=== PATIENT | female | born 1945 | race Caucasian/White ===

== ENCOUNTER 2022-02-21 19:18 | Inpatient (IN) ==
[2022-02-21] MEDS ORDERED: SODIUM CHLORIDE 0.9% 1000ML 1,000 ML IV STA (19:45)
[2022-02-21] MEDS ORDERED: ONDANSETRON INJ 2 MG/ML 2 ML VIAL IV STA (19:45)
--- NOTE | 2022-02-21 19:59 | Emergency Department Note ---
Impression & Plan Intractable low back pain, Pathologic compression fracture of lumbar vertebra, Constipation ED Provider Note NAME: MAURY DAVIS AGE: 77 SEX: F : 1945 ARRIVES VIA: Ambulance INFORMANT: Patient, ED PROVIDER(S): Madhu Patel DO CHIEF COMPLAINT: Back pain HPI: The patient is a 77-year-old female who presented to the emergency department for an evaluation of severe back pain. The patient was recently diagnosed with breast cancer. She has been managing back pain as well as chest pain over the course the last month. She was seen by her primary care physician and started on pain medication. The patient has been taking oxycodone. She is also been very constipated noticing abdominal distention abdominal pain. She states the back pain is moderate to severe. It worsens with any ambulation. The patient denies having any hematuria or fever. She did have a CT recently that shows widely metastatic disease to the axial skeleton but no definite primary although the patient does have known breast cancer now. She is pending multiple tests including PET scan as well as MRI. The pain became much more severe this evening so they called their primary care physician and they were referred to the emergency department for further evaluation. The patient denies having any numbness or saddle anesthesia. ROS: See above HPI for pertinent positives & negatives. A total of 10 systems reviewed and were otherwise negative. PAST MEDICAL HISTORY: See Below PAST SURGICAL HISTORY: See Below FAMILY HISTORY: See Below SOCIAL HISTORY: See Below HOME MEDICATIONS: See Below ALLERGIES: See Below VITALS: See Below PHYSICAL EXAMINATION: GENERAL: The patient is awake and alert. The patient is very anxious appearing and appears to be in severe pain. EYES: The conjunctivae are clear. The pupils are round and reactive. EARS, NOSE, MOUTH AND THROAT: The nose is without any evidence of any deformity. NECK: The neck is nontender and supple. RESPIRATORY: Normal respiratory effort is noted there is no evidence of wheezing rhonchi or rales CARDIOVASCULAR: Regular rate and rhythm noted there no murmurs rubs or gallops normal S1 normal S2. GASTROINTESTINAL: The abdomen is moderately distended. There is no tenderness guarding rigidity. BACK: Diffuse tenderness was noted over the entire spine. MUSCULOSKELETAL/EXTREMITIES: There is no evidence of gross deformity full range of motion is noted in the hips and shoulders. SKIN: There is no obvious evidence of any rash. There are no petechiae, pallor or cyanosis noted. NEUROLOGIC: Patient is awake alert and oriented x3 strength is symmetric patellar reflexes are 2+ bilaterally. Achilles tendon reflexes are 2+ bilaterally. Great toe raise was symmetric. MEDICAL DECISION MAKING: The patient is a 77-year-old female who presented to the emergency department for severe low back pain. The patient started having symptoms about a month ago. She was found to have widely metastatic disease to the axial skeleton. She also was recently diagnosed with breast cancer. It is unclear if the metast atic disease is related to the primary breast cancer although it is highly suspicious for metastatic disease from the breast cancer. The patient has follow-up scheduled with oncology. She has had an MRI and is scheduled further testing such as PET scanning. The patient was treated with IV pain medication in the emergency department. She is also been complaining of constipation. Her pain medicine regimen at home does not appear to be helping and she has new pathologic fractures noted on CT. For this reason I [facility] have agreed to evaluate the patient in the emergency department for further management and disposition. Triage Nursing notes reviewed. Prior medical records reviewed Vital Signs: reviewed and remarkable for elevated blood pressure. Differential diagnosis: Musculoskeletal, disc herniation, fracture, metastatic disease, cord compression, discitis, sciatica, cauda equina, infection, aortic disease, renal colic, gastrointestinal, as well as other pathologies. ER treatment provided: See below Diagnostics interpreted by me: ECG: none Cardiac Monitoring: An order was placed for continuous cardiac monitoring. The monitor shows a rate of 77 bpm with sinus rhythm. Laboratory studies: As stated above and show below. Imaging studies: See below Consultation(s): I discussed this case with Dr. Abdi who [facility]. Past Med/Surg History Medical History Nausea and vomiting after administration of anesthetic agent Osteoarthritis Surgical History History of arthroscopy of right knee mensicus repair History of colonoscopy History of fusion of cervical spine (~2002) C7--normal ROM History of left cataract surgery History of partial hysterectomy History of wisdom tooth extraction Family History Other No family history of adverse response to anesthesia Social History Smoking Status: Never smoker Second Hand Exposure: No; Hx Alcohol Use: Yes Hx Substance Use: No Preferred Language: Jamaican Communication Ability: Effective Material Control Supervisor Required: No Beliefs That Will Affect Care: None Current Living Situation: Spouse Feels Safe at Home: Yes Assistive Devices: Glasses Allergies Allergies Allergy/AdvReac Type Severity Reaction Status Date / Time bee venom protein (honey bee) Allergy Severe ANAPHYLAXIS Verified 12/24/21 06:29 Home Meds Home Medications Medication Instructions Recorded Confirmed Vitamin D3 Complete 50 mg PO DAILY 11/20/21 12/24/21 aspirin 81 mg chewable tablet 81 mg PO DAILY 11/20/21 12/24/21 atorvastatin 40 mg tablet 40 mg PO HS 11/20/21 12/24/21 calcium carbonate 333 mg-magnesium 1 tab PO DAILY 11/20/21 12/24/21 oxide 133 mg-zinc sulf 5 mg tablet coenzyme Q10 100 mg capsule 100 mg PO DAILY 11/20/21 12/24/21 (CoQ-10) cyanocobalamin (vitamin B-12) 1,000 mcg PO DAILY 11/20/21 12/24/21 1,000 mcg tablet (Vitamin B-12) multivitamin 1 tab PO DAILY 11/20/21 12/24/21 omega-3 fatty acids 2,000 mg PO DAILY 11/20/21 12/24/21 pyridoxine (vitamin B6) 100 mg 100 mg PO DAILY 11/20/21 12/24/21 tablet (Vitamin B-6) vitamin A 2,400 mcg capsule 2,400 mcg PO DAILY 11/20/21 12/24/21 vitamin A-vitamin C-vit E-min 1 tab PO DAILY 11/20/21 12/24/21 tablet vitamin B complex 1 cap PO DAILY 11/20/21 12/24/21 vitamin E (dl, acetate) 180 mg 180 mg PO DAILY 11/20/21 12/24/21 (400 unit) capsule Results & Data (ED) Vital Signs Vital Signs - 24 hr 02/21/22 19:22 Temperature 37.4 C Temperature Source Oral Pulse Rate 77 Respiratory Rate 20 Respiratory Effort / Characteristics Non-Labored Respiratory Depth Normal Blood Pressure 158/73 H Blood Pressure Mean 101 Blood Pressure Position Lying Pulse Oximetry 97 Oxygen Delivery Method Room Air Sepsis Recent Fever Within 48 Hours No Sepsis New/Unexplained Change in Mental Status No Sepsis Action Taken by Nursing No Action Required Home Medications Current Medication List: was personally reviewed by me Laboratory Data Attestation: I reviewed the patient's lab results. Result diagrams: 02/21/22 16:53 02/21/22 16:53 Lab Results 02/21/22 02/21/22 02/21/22 Range/Units 16:53 16:53 21:05 WBC 11.26 H (4.8-10.8) K/uL RBC 4.42 (4.2-5.4) M/uL Hgb 13.1 (12.0-16.0) g/dL Hct 39.4 (37-47) % MCV 89.1 (80-100) fL MCH 29.6 (25-34) pg MCHC 33.2 (32-36) g/dL RDW Std Deviation 47.5 H (36.4-46.3) fL RDW Coeff of Adeel 14.5 (11.5-14.5) % Plt Count 265 (130-400) K/uL MPV 8.7 (7.4-10.4) fL Immature Gran % (Auto) 0.3 % Neut % (Auto) 72.2 % Lymph % (Auto) 17.1 % [place] % (Auto) 9.0 % Eos % (Auto) 1.2 % Baso % (Auto) 0.2 % Neut # (Auto) 8.14 H (1.4-6.5) K/uL Lymph # (Auto) 1.92 (1.2-3.4) K/uL [place] # (Auto) 1.01 H (0.11-0.59) K/uL Eos # (Auto) 0.14 (0-0.5) K/uL Baso # (Auto) 0.02 (0-0.2) K/uL Immature Gran # (Auto) 0.03 H (0.00-0.02) K/uL Sodium 136 (136-145) mmol/L Potassium 4.3 (3.5-5.1) mmol/L Chloride 103 (98-107) mmol/L Carbon Dioxide 22 (21-32) mmol/L Anion Gap 11 (3-11) BUN 17 (6-23) mg/dl Creatinine 0.80 (0.6-1.2) mg/dl Est Cr Clr Drug Dosing 54.7 ml/min Est GFR ( Amer) 82.4 ml/min Est GFR (Non-Af Amer) 71.1 ml/min BUN/Creatinine Ratio 21.3 H (10-20) Glucose 126 H (70-99(Fasting)) mg/dl Calcium 9.6 (8.5-10.1) mg/dl Total Bilirubin 0.8 (0.2-1.0) mg/dl AST 18 (13-39) U/L ALT 11 (7-52) U/L Alkaline Phosphatase 76 (34-104) U/L Total Protein 7.4 (6.0-8.3) gm/dl Albumin 4.2 (3.4-5.0) gm/dl Globulin 3.2 (2.5-4.0) gm/dl Albumin/Globulin Ratio 1.3 (0.9-2) Lipase 15 (11-82) U/L SARS-CoV-2, RNA, NAAT NEGATIVE (NEGATIVE) Administered Medications Morphine Sulfate (Morphine Sulfate 4 Mg/Ml 1 Ml Carp\Vial) 4 mg IV Q15M PRN PRN Reason: Pain Stop: 03/07/22 19:44 Last Admin: 02/21/22 20:58 Dose: 4 mg Documented by: [id number] Discontinued Medications Sodium Chloride (Nss 1000ml) 1,000 mls @ 999 mls/hr IV .Q1H1M STA Stop: 02/21/22 20:45 Last Admin: 02/21/22 21:03 Dose: 999 mls/hr Documented by: [id number] Ondansetron HCl (Ondansetron Inj 2 Mg/Ml 2 Ml Vial) 4 mg IV NOW STA Stop: 02/21/22 19:46 Last Admin: 02/21/22 20:58 Dose: 4 mg Documented by: [id number] Imaging Data Radiologist's Impression: Abdomen/Pelvis CT 02/21/22 19:45 CT abd pelvis wo con CLINICAL HISTORY: lower pain TECHNIQUE: Helical axial images of the abdomen and pelvis were obtained. Automated dose lowering techniques and/or adjustment according to patient size were utilized for this exam. This exam was performed without intravenous contrast. CT DOSE: 410.74 mGy.cm COMPARISON: Comparison is made to CT abdomen pelvis 01/11/2022 FINDINGS: Lower chest: Atelectasis is seen in the lower lungs. Liver: Hepatic cyst is seen. Gallbladder and biliary tree: No calcified gallstones. Normal caliber wall. No intra- or extrahepatic biliary ductal dilation. Pancreas: Unremarkable, no focal lesions. Spleen: Unremarkable. Adrenals: Unremarkable. Kidneys and ureters: Unremarkable. Bladder: Unremarkable. Reproductive organs: Unremarkable. Bowel: Unremarkable appearance of the bowel. The appendix is normal. A hiatal hernia is seen. Lymph nodes Retroperitoneal: Unremarkable. Mesenteric: Unremarkable. Pelvic: Unremarkable. Peritoneum: Normal. Vessels: Unremarkable. Abdominal wall: Incidentally noted is an intramuscular lipoma in the right lateral oblique muscles. Bones: Extensive lytic and blastic metastases are seen. Previously noted loss of height deformities are seen. IMPRESSION: 1. No acute abnormality is seen, in particular no evidence of diverticulitis or appendicitis. 2. Redemonstration of extensive mixed lytic and sclerotic lesions and pathologic fractures. ACT 112: Negative or not required by law. Electronically signed by: Gonsalo Muir M.D. 02/21/2022 8:47 PM Chest X-Ray 02/21/22 19:46 XR chest 1V portable CLINICAL HISTORY: abd pain TECHNIQUE: Single frontal radiograph of the chest was obtained. Comparison: None available at the time of this dictation. FINDINGS: No lines and tubes are seen. The aorta is tortuous. The remainder of the cardiomediastinal silhouette is unremarkable. Prominence and cephalization of the vasculature is seen. A focus of atelectasis is seen at the left lung base. No evidence of pleural effusion or pneumothorax. IMPRESSION: Mild pulmonary edema. ACT 112: Negative or not required by law. Electronically signed by: Gonsalo Muir M.D. 02/21/2022 8:35 PM Discharge Plan Visit Data Chief Complaint: Back Injury/Pain ED Provider: Madhu Patel Discharge Problem: Intractable low back pain, Pathologic compression fracture of lumbar vertebra, Constipation Patient Disposition: Being Evaluated by Hospitalist Forms Stand Alone Forms: My [facility] Prescriptions Prescriptions: No Action multivitamin Tablet 1 tab PO DAILY RF: 0 atorvastatin 40 mg Tablet 40 mg PO HS RF: 0 vitamin A 2,400 mcg Capsule 2,400 mcg PO DAILY RF: 0 cyanocobalamin (vitamin B-12) [Vitamin B-12] 1,000 mcg Tablet 1,000 mcg PO DAILY RF: 0 aspirin 81 mg Tablet,Chewable 81 mg PO DAILY RF: 0 pyridoxine (vitamin B6) [Vitamin B-6] 100 mg Tablet 100 mg PO DAILY RF: 0 vitamin B complex Capsule 1 cap PO DAILY RF: 0 vitamin A-vitamin C-vit E-min Tablet 1 tab PO DAILY RF: 0 coenzyme Q10 [CoQ-10] 100 mg Capsule 100 mg PO DAILY RF: 0 omega-3 fatty acids Capsule 2,000 mg PO DAILY RF: 0 vitamin E (dl, acetate) 180 mg (400 unit) Capsule 180 mg PO DAILY RF: 0 calcium carb-mag ox-zinc sulf 333-133-5 mg Tablet 1 tab PO DAILY RF: 0 Vitamin D3 Complete 50 mg PO DAILY RF: 0 Referrals Referrals: Chu Phillips DO [Primary Care Provider] -
[2022-02-21 20:04] LABS: Basophils # (auto) 0.02 K/uL (0-0.2); Basophils % (auto) 0.2 %; Eosinophils # (auto) 0.14 K/uL (0-0.5); Eosinophils % (auto) 1.2 %; Hematocrit (blood only) 39.4 % (37-47); Hemoglobin 13.1 g/dL (12.0-16.0); Immature Granulocytes # (auto) 0.03 K/uL (0.00-0.02); Immature Granulocytes % (auto) 0.3 %; Lymphocytes # (auto) 1.92 K/uL (1.2-3.4); Lymphocytes % (auto) 17.1 %; Mean Corpuscular Hemoglobin 29.6 pg (25-34); Mean Corpuscular Hgb Conc 33.2 g/dL (32-36); Mean Corpuscular Volume 89.1 fL (80-100); Mean Platelet Volume 8.7 fL (7.4-10.4); Monocytes # (auto) 1.01 K/uL (0.11-0.59); Neutrophils # (auto) 8.14 K/uL (1.4-6.5); Neutrophils % (auto) 72.2 %; Platelet Count 265 K/uL (130-400); RDW Coefficient of Variation 14.5 % (11.5-14.5); RDW Standard Deviation 47.5 fL (36.4-46.3); Red Blood Count 4.42 M/uL (4.2-5.4); White Blood Count 11.26 K/uL (4.8-10.8)
[2022-02-21 20:27] LABS: Albumin Globulin Ratio 1.3 (0.9-2); Albumin Level 4.2 gm/dl (3.4-5.0); BUN Creatinine Ratio 21.3 (10-20); Bilirubin,Total 0.8 mg/dl (0.2-1.0); Calcium 9.6 mg/dl (8.5-10.1); Creatinine Clr Calc Pharmacy 54.7 ml/min; Est GFR (African American) 82.4 ml/min; Est GFR (Non-African American) 71.1 ml/min; Globulin 3.2 gm/dl (2.5-4.0); Potassium 4.3 mmol/L (3.5-5.1); Total Protein 7.4 gm/dl (6.0-8.3)
--- NOTE | 2022-02-21 20:37 | XRay Report ---
XR chest 1V portable CLINICAL HISTORY: abd pain TECHNIQUE: Single frontal radiograph of the chest was obtained. Comparison: None available at the time of this dictation. FINDINGS: No lines and tubes are seen. The aorta is tortuous. The remainder of the cardiomediastinal silhouette is unremarkable. Prominence and cephalization of the vasculature is seen. A focus of atelectasis is seen at the left lung base. No evidence of pleural effusion or pneumothorax. IMPRESSION: Mild pulmonary edema. ACT 112: Negative or not required by law. Electronically signed by: Gonsalo Muir M.D. 02/21/2022 8:35 PM
--- NOTE | 2022-02-21 20:49 | CT Scan Report ---
CT abd pelvis wo con CLINICAL HISTORY: lower pain TECHNIQUE: Helical axial images of the abdomen and pelvis were obtained. Automated dose lowering tech niques and/or adjustment according to patient size were utilized for this exam. This exam was perfor med without intravenous contrast. CT DOSE: 410.74 mGy.cm COMPARISON: Comparison is made to CT abdomen pelvis 01/11/2022 FINDINGS: Lower chest: Atelectasis is seen in the lower lungs. Liver: Hepatic cyst is seen. Gallbladder and biliary tree: No calcified gallstones. Normal caliber wall. No intra- or extrahepatic biliary ductal dilation. Pancreas: Unremarkable, no focal lesions. Spleen: Unremarkable. Adrenals: Unremarkable. Kidneys and ureters: Unremarkable. Bladder: Unremarkable. Reproductive organs: Unremarkable. Bowel: Unremarkable appearance of the bowel. The appendix is normal. A hiatal hernia is seen. Lymph nodes Retroperitoneal: Unremarkable. Mesenteric: Unremarkable. Pelvic: Unremarkable. Peritoneum: Normal. Vessels: Unremarkable. Abdominal wall: Incidentally noted is an intramuscular lipoma in the right lateral oblique muscles. Bones: Extensive lytic and blastic metastases are seen. Previously noted loss of height deformities a re seen. IMPRESSION: 1. No acute abnormality is seen, in particular no evidence of diverticulitis or appendicitis. 2. Redemonstration of extensive mixed lytic and sclerotic lesions and pathologic fractures. ACT 112: Negative or not required by law. Electronically signed by: Gonsalo Muir M.D. 02/21/2022 8:47 PM
[2022-02-21] MEDS: MoRPHine SULFATE 4 MG/ML 1 ML CARP\\VIAL IV PRN ×2 (20:58→23:47)
[2022-02-21] MEDS ORDERED: MAGNESIUM CITRATE 296 ML/BTL PO STA (23:12)
[2022-02-22 00:37] LABS: Appearance Urine Clear (Clear); Bilirubin Urine Negative (Negative); Blood Urine Negative (Negative); Color Urine Yellow; Epithelial Cell Urine Auto >30 /lpf (0-5); Glucose Urine UA Negative (Negative); Ketones Urine 1+ (Negative); Leukocyte Esterase Urine 2+ (Negative); Nitrite Urine Negative (Negative); Protein Urine Negative (Negative); Specific Gravity Urine 1.021 (1.000-1.030); Urobilinogen Urine Negative (Negative); WBC Urine Automated >30 /hpf (0-5); pH Urine 6.5 (4.5-7.5)
[2022-02-22] MEDS ORDERED: ONDANSETRON INJ 2 MG/ML 2 ML VIAL IV PRN (00:44)
[2022-02-22] MEDS ORDERED: POLYETHYLENE (MIRALAX) 17 GM PACK PO PRN (00:44)
[2022-02-22] MEDS: HYDROmorphone INJ 0.5 MG/0.5 ML SYR IV PRN ×4 (01:08→18:14)
[2022-02-22 01:47] LABS: Mucus Urine Present (None Prsent); RBC Urine Automated 0-4 /hpf (0-4)
[2022-02-22 01:53] LABS: Bacteria Urine Automated 1+ (Negative)
[2022-02-22 01:54] LABS: Cast Urine Automated 0 /lpf (0-5)
[2022-02-22 05:38] LABS: Basophils # (auto) 0.03 K/uL (0-0.2); Basophils % (auto) 0.3 %; Eosinophils # (auto) 0.15 K/uL (0-0.5); Eosinophils % (auto) 1.7 %; Hematocrit (blood only) 35.9 % (37-47); Hemoglobin 11.8 g/dL (12.0-16.0); Immature Granulocytes # (auto) 0.03 K/uL (0.00-0.02); Immature Granulocytes % (auto) 0.3 %; Lymphocytes # (auto) 1.89 K/uL (1.2-3.4); Lymphocytes % (auto) 21.6 %; Mean Corpuscular Hemoglobin 29.6 pg (25-34); Mean Corpuscular Hgb Conc 32.9 g/dL (32-36); Mean Platelet Volume 8.7 fL (7.4-10.4); Monocytes # (auto) 0.86 K/uL (0.11-0.59); Monocytes % (auto) 9.8 %; Neutrophils % (auto) 66.3 %; Platelet Count 255 K/uL (130-400); RDW Coefficient of Variation 14.4 % (11.5-14.5); RDW Standard Deviation 48.1 fL (36.4-46.3); Red Blood Count 3.99 M/uL (4.2-5.4); White Blood Count 8.76 K/uL (4.8-10.8)
[2022-02-22 05:58] LABS: Calcium 9.1 mg/dl (8.5-10.1); Creatinine Clr Calc Pharmacy 58.8 ml/min; Est GFR (African American) 90.6 ml/min; Est GFR (Non-African American) 78.1 ml/min; Magnesium 2.2 mg/dl (1.7-2.4); Potassium 4.9 mmol/L (3.5-5.1)
--- NOTE | 2022-02-22 06:41 | History and Physical Report ---
DATE OF ADMISSION: 02/21/2022. CHIEF COMPLAINT: Severe back pain. HISTORY OF PRESENT ILLNESS: This is a 77-year-old female with past medical history significant for recent diagnosis of metastatic breast cancer, bone metastasis, prediabetes, hypercholesterolemia, non-allergic rhinitis, who presents with severe back pain. The patient seemed to have a small left breast lesion, which was benign, but then she had axillary lymphadenopathy, biopsy showed metastatic breast cancer, hormonal negative, HER-2 equivocal, significant bone metastatic disease, following with Hem/Onc. As per the patient, she is supposed to get monthly shots starting next Friday. She also had MRI scan done on 02/16/2022 of the thoracic spine, which showed extensive osseous metastatic disease throughout the thoracic spine, multilevel chronic-appearing pathologic compression fractures including a moderate to severe compression fracture of T10, associated with mild retropulsion of bone, also lytic lesion within the T9 vertebral body with suspected internal hemorrhage, no associated vertebral body height loss. There was also block like enhancement extending along the ventral epidural space from T9-T11, suspicious for epidural extension of disease. No significant mass effect on the spinal cord. Thoracic spine spondylosis with superimposed metastases changes, associated with mild spinal canal narrowing at T10-T11 level and foraminal narrowing. As the pain is not getting better, she came to the hospital today. She states she is able to ambulate and she is able to climb stairs, but when trying to get up, she has severe pain in the lower back and she is also constipated for the last 2 weeks. She did not move her bowels for 2 weeks. Normal bladder movements. Appetite is down. No difficulty swallowing. No chest pain, no shortness of breath, no cough, no fevers, some headache, no blurred visions, no earache, no runny nose, no sore throat. Currently, resting comfortably and hemodynamically stable. With ongoing severe back pain, we are called for admission. ALLERGIES: BEE VENOM. PAST MEDICAL HISTORY: As mentioned above. PAST SURGICAL HISTORY: Breast biopsy, colonoscopies, neck spine fusion, partial hysterectomy, bilateral cataract surgery. MEDICATIONS: As per [facility], the patient is on letrozole 2.5 mg p.o. daily, oxycodone 7.5 mg p.o. q. 6 hours p.r.n. for severe pain, Colace 100 mg p.o. b.i.d., MiraLax 17 g p.o. daily p.r.n., aspirin 81 mg p.o. daily, vitamin B12 1000 mcg p.o. daily, B complex daily, atorvastatin 40 mg p.o. daily. FAMILY HISTORY: Significant for father has allergies, lung cancer; mother has Alzheimer's, breast cancer; maternal grandmother had breast cancer; brother has lymphoma. SOCIAL HISTORY: , no smoking. Alcohol, rarely. No drug use. REVIEW OF SYSTEMS: As per HPI. Rest of the review is negative. PHYSICAL EXAMINATION: GENERAL: The patient is of moderate build, not in acute distress. VITAL SIGNS: Temperature 37.4, pulse 77, respiratory rate 20, blood pressure 158/73, oxygen 97% on room air. HEENT: Pupils equal, round and reactive to light. Oral mucosa moist. NECK: No JVD, no neck masses. CARDIOVASCULAR: S1 and S2 heard. Regular rate and rhythm. No murmur, no gallop. RESPIRATORY SYSTEM: Normal AP diameter. No accessory muscle use. No wheezing, no crackles. ABDOMEN: Soft, bowel sounds present, nontender, no distention. CENTRAL NERVOUS SYSTEM: Cranial nerves II through XII grossly intact, nonfocal. EXTREMITIES: No edema, no erythema.Able to raise lower extremities LABORATORY DATA: WBC 11.2, hemoglobin 13.1, hematocrit 39.4, platelets 265. Sodium 136, potassium 4.3, chloride 103, bicarbonate 22, BUN 17, creatinine 0.8, serum glucose 126, calcium 9.6, total bilirubin 0.8, AST 18, ALT 11, alkaline phosphatase 76, lipase 15. SARS-CoV-2 rapid test negative. IMAGING DATA: Chest x-ray: Mild pulmonary edema. CT abdomen and pelvis, extensive mixed lytic and sclerotic lesions and pathological fractures. ASSESSMENT AND PLAN: This is a 77-year-old female who was recently diagnosed with metastatic breast cancer with bony metastasis, comes with severe back pain. 1. Severe back pain: Metastatic breast cancer. She has multiple compression fractures of thoracic spine as mentioned in H and P, on the recent MRI scan. Pain control with Dilaudid p.r.n. Will consult orthopedics and also pain management. Monitor in the medical floor. 2. Metastatic breast cancer: Follow up with hem/onc.Currently on Femara. 3. Hyperlipidemia: On statin. 4. Constipation. Stool softner and enema. May try Relistor. 5. Prediabetes. ADA diet.Follow Hba1c levels. 6. Deep venous thrombosis prophylaxis: Lovenox. DISPOSITION: Closely monitor in the medical floor. PT/OT. Social service to help with discharge planning. Job ID: [id number]
--- NOTE | 2022-02-22 08:54 | Pain Management Consultation ---
Date of Consultation February 22, 2022 Assessment & Plan (1) Intractable low back pain: (2) Pathologic compression fracture of lumbar vertebra: Encounter type: initial encounter Qualified Code(s): M48.56XA - Collapsed vertebra, not elsewhere classified, lumbar region, initial encounter for fracture (3) Breast cancer: * I have initiated the patient on Fentanyl patch 12 mcg/hr. Side effect profile has been reviewed with the patient. * Ordered Oxycodone 10mg x 4 hours PRN pain * IV Dilaudid 0.5 mg x 3 hours PRN breakthrough pain. * Colace and Senokot ordered for constipation. * Consider adding Cymbalta to diminish pain burden but will not add today given that Fentanyl patch is new. History of Present Illness Reason for Consultation: Back pain Attending Physician: Rosalie Barriga MD History of Present Illness Mrs. Vaca that is a 77 year old female that has been admitted to the [facility] for intractable back pain. Back pain has been ongoing for 3 weeks. She does have a recent diagnosis of breast cancer and the back pain was found to be attributed to bone metastasis. PCP prescribed her Oxycodone 15mg x 6 hours PRN pain. Yesterday the pain was not managed with the medication so she can into the Emergency Department for further treatment. Patient reports pain in the mid to low back. No radiation of pain. The pain is worse when going from supine to sitting or sitting to standing. Since starting the Oxycodone she has had constipation. Has not had a full BM in 2 weeks. No abdominal bloating, nausea, vomiting, drowsiness. Case discussed with Dr. Deb Roach Allergies Allergy/AdvReac Type Severity Reaction Status Date / Time bee venom protein (honey bee) Allergy Severe ANAPHYLAXIS Verified 12/24/21 06:29 Home Medications Medication Instructions Recorded Confirmed Type Vitamin D3 Complete 50 mg PO DAILY 11/20/21 12/24/21 History aspirin 81 mg chewable tablet 81 mg PO DAILY 11/20/21 12/24/21 History atorvastatin 40 mg tablet 40 mg PO HS 11/20/21 12/24/21 History calcium carbonate 333 mg-magnesium 1 tab PO DAILY 11/20/21 12/24/21 History oxide 133 mg-zinc sulf 5 mg tablet coenzyme Q10 100 mg capsule 100 mg PO DAILY 11/20/21 12/24/21 History (CoQ-10) cyanocobalamin (vitamin B-12) 1,000 mcg PO DAILY 11/20/21 12/24/21 History 1,000 mcg tablet (Vitamin B-12) multivitamin 1 tab PO DAILY 11/20/21 12/24/21 History omega-3 fatty acids 2,000 mg PO DAILY 11/20/21 12/24/21 History pyridoxine (vitamin B6) 100 mg 100 mg PO DAILY 11/20/21 12/24/21 History tablet (Vitamin B-6) vitamin A 2,400 mcg capsule 2,400 mcg PO DAILY 11/20/21 12/24/21 History vitamin A-vitamin C-vit E-min 1 tab PO DAILY 11/20/21 12/24/21 History tablet vitamin B complex 1 cap PO DAILY 11/20/21 12/24/21 History vitamin E (dl, acetate) 180 mg 180 mg PO DAILY 11/20/21 12/24/21 History (400 unit) capsule letrozole 2.5 mg tablet 2.5 mg PO DAILY 02/22/22 02/22/22 History Patient History Medical History Nausea and vomiting after administration of anesthetic agent Osteoarthritis Surgical History History of arthroscopy of right knee mensicus repair History of colonoscopy History of fusion of cervical spine (~2002) C7--normal ROM History of left cataract surgery History of partial hysterectomy History of wisdom tooth extraction Family History Other No family history of adverse response to anesthesia Social History Smoking Status: Never smoker Second Hand Exposure: No; Hx Alcohol Use: No Hx Substance Use: No Preferred Language: Bulgarian Communication Ability: Effective Agronomy Specialist Required: No Beliefs That Will Affect Care: None Current Living Situation: Spouse Other Information That Helps Us Care for You: No Feels Safe at Home: Yes Safety Concerns: Feels Safe At This Time Assistive Devices: Cane Physical Exam Physical Exam: GENERAL: This is a 77 year old female that is laying supine in the hospital bed, in no acute distress. HEAD/FACE: Normocephalic and atraumatic. EYES: No drainage or conjunctival injection. ENT: Nose without bleeding or discharge. Oral mucosa moist. NECK: Full ROM without apparent pain. No swelling or masses noted. RESPIRATORY: Patient with unlabored breathing. No signs of respiratory distress. CHEST/AXILLA: Chest movement symmetrical. No deformities noted. ABDOMEN/GI: No distension BACK: No focal area of tenderness. No myofascial spasm. SKIN: [place], warm and dry. No rash noted. MS/EXTREMITY: No swelling, no deformities. Moving extremities appropriately. NEURO: Alert and appears oriented. Speech is fluent. Cranial Nerves are grossly intact. PSYCH: Alert, pleasant, affect is calm Results (Pain Clinic) Diagnostic Review CT Findings: CT abd pelvis wo con CLINICAL HISTORY: lower pain TECHNIQUE: Helical axial images of the abdomen and pelvis were obtained. Automated dose lowering techniques and/or adjustment according to patient size were utilized for this exam. This exam was performed without intravenous contrast. CT DOSE: 410.74 mGy.cm COMPARISON: Comparison is made to CT abdomen pelvis 01/11/2022 FINDINGS: Lower chest: Atelectasis is seen in the lower lungs. Liver: Hepatic cyst is seen. Gallbladder and biliary tree: No calcified gallstones. Normal caliber wall. No intra- or extrahepatic biliary ductal dilation. Pancreas: Unremarkable, no focal lesions. Spleen: Unremarkable. Adrenals: Unremarkable. Kidneys and ureters: Unremarkable. Bladder: Unremarkable. Reproductive organs: Unremarkable. Bowel: Unremarkable appearance of the bowel. The appendix is normal. A hiatal hernia is seen. Lymph nodes Retroperitoneal: Unremarkable. Mesenteric: Unremarkable. Pelvic: Unremarkable. Peritoneum: Normal. Vessels: Unremarkable. Abdominal wall: Incidentally noted is an intramuscular lipoma in the right lateral oblique muscles. Bones: Extensive lytic and blastic metastases are seen. Previously noted loss of height deformities are seen. IMPRESSION: 1. No acute abnormality is seen, in particular no evidence of diverticulitis or appendicitis. 2. Redemonstration of extensive mixed lytic and sclerotic lesions and pathologic fractures. ACT 112: Negative or not required by law. Electronically signed by: Gonsalo Muir M.D. 02/21/2022 8:47 PM
[2022-02-22] MEDS: fentaNYL 12 MCG/HR TDSY TD SCH (09:20)
[2022-02-22] MEDS: oxyCODONE HCL IR 5 MG TAB (IMMEDIATE RELEASE) PO PRN ×3 (09:21→23:55)
[2022-02-22] MEDS: ENOXAPARIN INJ 40 MG/0.4 ML SYR SQ SCH (09:21)
[2022-02-22] MEDS: DOCUSATE SODIUM 100 MG CAP PO SCH ×2 (09:21→20:33)
[2022-02-22] MEDS: ASPIRIN 81 MG CHEW PO SCH (09:22)
[2022-02-22] MEDS: LETROZOLE 2.5 MG TAB PO SCH (09:24)
[2022-02-22] MEDS: SENNA 8.6 MG TAB PO SCH (09:24)
--- NOTE | 2022-02-22 14:03 | Hospitalist Progress Note ---
Date of Service February 22, 2022 Assessment & Plan (1) Breast cancer: (2) Intractable low back pain: (3) Pathologic compression fracture of lumbar vertebra: Plan: Patient has intractable low back pain I reviewed patient's outpatient PET scan, MRI T-spine that were done outpatient on 02/06/2022 02/16/2022 respectively. These show widespread metabolically active osteolytic metastasis and extensive osseous metastatic throughout thoracic spine respectively. Abdominal pelvic CT on presentation redemonstrated extensive mixed lytic and sclerotic lesions and pathological fractures. Pain management recommendations noted. Continue Dilaudid, oxycodone and fentanyl patch. I believe patient may benefit from radiation treatment. I called patient's oncologist Dr. Feliciano Ceballos and discussed patient with him. He agreed with radiation oncology consult and evaluation for possible radiation treatment Radiation oncology consult Continue letrozole. Bowel regimen. Lovenox subcu for DVT prophylaxis Admission and Anticipated Discharge Date Admission Date: February 21, 2022 Subjective Patient seen and examined. Reports severe low back pain especially with any kind of movement. Denies any headache, dizziness Denies any chest pain, cough, shortness of breath, palpitations Denies any nausea, vomiting, abdominal pain, diarrhea. Yet to move bowels. Passing flatus Denies fevers, chills Denies dysuria, frequency or urgency Physical Exam Constitutional: + well hydrated Laying calm in bed Appears uncomfortable with slight movement Eyes: PERRL, conjunctivae normal, anicteric sclerae ENMT: external ear and nose normal, oropharynx normal Respiratory: normal respiratory effort, lungs clear to auscultation Cardiovascular: Rate/Rhythm: regular rate and regular rhythm S1 S2 Gastrointestinal (Abdomen): normal bowel sounds, soft, nontender, no hepatosp lenomegaly Musculoskeletal: No pedal edema Limited exam due to pain with slight movement Neurologic: PERRL, EOMI, accommodation nl, no face palsy, no dysarthria Psychiatric: A+Ox3, euthymic affect Results & Data Results & Data ([facility]) Vital Signs (Past 12 Hours) Vital Signs Temp Pulse Resp BP Pulse Ox 02/22/22 07:33 36.5 C 68 16 149/78 H 91 Laboratory Results Abnormal lab results 02/21/22 02/21/22 02/22/22 Range/Units 16:53 16:53 00:00 WBC 11.26 H (4.8-10.8) K/uL RBC (4.2-5.4) M/uL Hgb (12.0-16.0) g/dL Hct (37-47) % RDW Std Deviation 47.5 H (36.4-46.3) fL Neut # (Auto) 8.14 H (1.4-6.5) K/uL [place] # (Auto) 1.01 H (0.11-0.59) K/uL Immature Gran # (Auto) 0.03 H (0.00-0.02) K/uL BUN/Creatinine Ratio 21.3 H (10-20) Glucose 126 H (70-99(Fasting)) mg/dl Urine Ketones 1+ H (Negative) Ur Leukocyte Esterase 2+ H (Negative) Urine WBC (Auto) >30 H (0-5) /hpf U Epithel Cells (Auto) >30 H (0-5) /lpf Urine Bacteria (Auto) 1+ H (Negative) Urine Mucus Present A (None Prsent) 02/22/22 02/22/22 Range/Units 05:24 05:24 WBC (4.8-10.8) K/uL RBC 3.99 L (4.2-5.4) M/uL Hgb 11.8 L (12.0-16.0) g/dL Hct 35.9 L (37-47) % RDW Std Deviation 48.1 H (36.4-46.3) fL Neut # (Auto) (1.4-6.5) K/uL [place] # (Auto) 0.86 H (0.11-0.59) K/uL Immature Gran # (Auto) 0.03 H (0.00-0.02) K/uL BUN/Creatinine Ratio 23.0 H (10-20) Glucose 106 H (70-99(Fasting)) mg/dl Urine Ketones (Negative) Ur Leukocyte Esterase (Negative) Urine WBC (Auto) (0-5) /hpf U Epithel Cells (Auto) (0-5) /lpf Urine Bacteria (Auto) (Negative) Urine Mucus (None Prsent) (1) Pathologic compression fracture of lumbar vertebra Encounter type: initial encounter Qualified Code(s): M48.56XA - Collapsed vertebra, not elsewhere classified, lumbar region, initial encounter for fracture
--- NOTE | 2022-02-22 14:53 | Radiation OncologyConsultation ---
Date of Consultation February 22, 2022 Assessment & Plan (1) Malignant neoplasm of breast metastatic to bone: Assessment: 77-year-old female with family history of breast cancer recently presented with chest pain. CT scan showed a left breast mass and axillary nodes. Biopsy of the axillary nodes were positive consistent with metastatic breast cancer. Breast biopsy was nondiagnostic. Staging work-up shows evidence of extensive bony metastatic disease. Patient subsequently dev eloped acute right-sided low back pain consistent with areas of metastatic disease as noted on PET/CT scan and CT scan. MRI of the thoracic spine also showed extensive disease. No brain MRI has yet been performed or MRI of the lumbar spine. Treatment Options: 1. Initiation of hormonal therapy when estrogen and progesterone status per Dr. Mandie Ceballos. 2. Systemic therapy as recommended by Dr. Feliciano Ceballos. 3. Continued pain medication. 4. Palliative radiation to sites of pain. Recommendations: Systemic therapy will be determined by Dr. Ceballos. I am recommending a course of palliative radiation to the lower lumbar and SI joint region especially on the right with the patient's pain seems to be most severe. Plan: 1. We will proceed with a CT simulation on Friday. 2. We will have the MRI and PET scan placed into our PACS for fusion with the simulation images. 3. Target volumes will be identified and treatment plan performed. 4. Treatment will begin as an inpatient as soon as possible and could complete as an outpatient if necessary. 5. Further staging work-up including MRI of the brain and follow-up with Dr. Feliciano Ceballos. The patient and her had multiple questions which were answered to their full satisfaction. Thank you for allowing us to participate in the care of this patient. This chart was completed in part utilizing [employer] Speech Voice Recognition software. Grammatical errors, random word insertions, pronoun errors and incomplete sentences are occasional consequence of this system due to software limitations, ambient noise and hardware issues. Any formal questions or concerns about the content, text or information contained within the body of this dictation should be directly addressed to the provider for clarification. Jose E Scott MD Department of Radiation Oncology [facility] History of Present Illness Reason for Consultation: Intractable back pain. Attending Physician: Rosalie Barriga MD Allergies Allergy/AdvReac Type Severity Reaction Status Date / Time bee venom protein (honey bee) Allergy Severe ANAPHYLAXIS Verified 12/24/21 06:29 Home Medications Medication Instructions Recorded Confirmed Type Vitamin D3 Complete 50 mg PO DAILY 11/20/21 12/24/21 History aspirin 81 mg chewable tablet 81 mg PO DAILY 11/20/21 12/24/21 History atorvastatin 40 mg tablet 40 mg PO HS 11/20/21 12/24/21 History calcium carbonate 333 mg-magnesium 1 tab PO DAILY 11/20/21 12/24/21 History oxide 133 mg-zinc sulf 5 mg tablet coenzyme Q10 100 mg capsule 100 mg PO DAILY 11/20/21 12/24/21 History (CoQ-10) cyanocobalamin (vitamin B-12) 1,000 mcg PO DAILY 11/20/21 12/24/21 History 1,000 mcg tablet (Vitamin B-12) multivitamin 1 tab PO DAILY 11/20/21 12/24/21 History omega-3 fatty acids 2,000 mg PO DAILY 11/20/21 12/24/21 History pyridoxine (vitamin B6) 100 mg 100 mg PO DAILY 11/20/21 12/24/21 History tablet (Vitamin B-6) vitamin A 2,400 mcg capsule 2,400 mcg PO DAILY 11/20/21 12/24/21 History vitamin A-vitamin C-vit E-min 1 tab PO DAILY 11/20/21 12/24/21 History tablet vitamin B complex 1 cap PO DAILY 11/20/21 12/24/21 History vitamin E (dl, acetate) 180 mg 180 mg PO DAILY 11/20/21 12/24/21 History (400 unit) capsule letrozole 2.5 mg tablet 2.5 mg PO DAILY 02/22/22 02/22/22 History Patient History Medical History Nausea and vomiting after administration of anesthetic agent Osteoarthritis Surgical History History of arthroscopy of right knee mensicus repair History of colonoscopy History of fusion of cervical spine (~2002) C7--normal ROM History of left cataract surgery History of partial hysterectomy History of wisdom tooth extraction Family History Other No family history of adverse response to anesthesia Social History Smoking Status: Never smoker Second Hand Exposure: No; Hx Alcohol Use: No Hx Substance Use: No Preferred Language: Greenlandic Communication Ability: Effective Cigarette And Filter Chief Inspector Required: No Beliefs That Will Affect Care: None marital status: Current Living Situation: Spouse How many Children do You have: 2 Other Information That Helps Us Care for You: No Feels Safe at Home: Yes Safety Concerns: Feels Safe At This Time Assistive Devices: None Review of Systems Eyes: no worsening vision Ear, Nose, Mouth, Throat: no hearing loss Respiratory: Shortness of breath occurs with with movement. She relates it to onset of pain. Cardiovascular: + chest pain with activity (This is related to metastatic disease of the sternum.) Gastrointestinal: + nausea and + constipation (With use of narcotics.); no vomiting Genitourinary: no dysuria and no urinary hesitancy Musculoskeletal: See history of present illness Integumentary: no rash Neurologic: no localized weakness, no tingling, no dizziness and no headache(s) Psychiatric: + anxiety Physical Exam Constitutional: well developed and well nourished Alert and cooperative. Discomfort with movement. Eyes: PERRL, conjunctivae normal, anicteric sclerae ENMT: Ears: no hearing impairment Respiratory: normal respiratory effort, lungs clear to auscultation Cardiovascular: Rate/Rhythm: regular rate and regular rhythm Chest (Breasts): Additional Comments: Breast examination reveals no easily palpated masses. There is mild left axillary adenopathy. There are no areas of tenderness. Gastrointestinal (Abdomen): normal bowel sounds, soft, nontender, no hepatosplenomegaly Musculoskeletal: There is tenderness of the lower back and especially of the right SI joint. Neurologic: PERRL, EOMI, accommodation nl, no face palsy, no dysarthria Psychiatric: A+Ox3, euthymic affect Lymphatic: + axillary lymphadenopathy (Left) Results (Rad Onc) Pathology Results: were reviewed and pertinent findings noted in HPI Imaging Studies: were reviewed and pertinent findings noted in HPI PG Care Time/CCT Total # of Minutes Spent Total Time Spent with Patient: Total time spent is greater than 50% in coordination of care (as documented) at patient's floor/unit and/or counseling patient: Coding Diagnoses Malignant neoplasm of breast metastatic to bone C50.919; C79.51
--- NOTE | 2022-02-22 15:00 | Radiation OncologyConsultation ---
Date of Consultation February 22, 2022 Assessment & Plan (1) Malignant neoplasm of breast metastatic to bone: Assessment: 77-year-old female with family history of breast cancer recently presented with chest pain. CT scan showed a left breast mass and axillary nodes. Biopsy of the axillary nodes were positive consistent with metastatic breast cancer. Breast biopsy was nondiagnostic. Staging work-up shows evidence of extensive bony metastatic disease. Patient subsequently dev eloped acute right-sided low back pain consistent with areas of metastatic disease as noted on PET/CT scan and CT scan. MRI of the thoracic spine also showed extensive disease. No brain MRI has yet been performed or MRI of the lumbar spine. Treatment Options: 1. Initiation of hormonal therapy when estrogen and progesterone status per Dr. Mandie Ceballos. 2. Systemic therapy as recommended by Dr. Feliciano Ceballos. 3. Continued pain medication. 4. Palliative radiation to sites of pain. Recommendations: Systemic therapy will be determined by Dr. Ceballos. I am recommending a course of palliative radiation to the lower lumbar and SI joint region especially on the right with the patient's pain seems to be most severe. Plan: 1. We will proceed with a CT simulation on Friday. 2. We will have the MRI and PET scan placed into our PACS for fusion with the simulation images. 3. Target volumes will be identified and treatment plan performed. 4. Treatment will begin as an inpatient as soon as possible and could complete as an outpatient if necessary. 5. Further staging work-up including MRI of the brain and follow-up with Dr. Feliciano Ceballos. The patient and her had multiple questions which were answered to their full satisfaction. Thank you for allowing us to participate in the care of this patient. This chart was completed in part utilizing [employer] Speech Voice Recognition software. Grammatical errors, random word insertions, pronoun errors and incomplete sentences are occasional consequence of this system due to software limitations, ambient noise and hardware issues. Any formal questions or concerns about the content, text or information contained within the body of this dictation should be directly addressed to the provider for clarification. Jose E Scott MD Department of Radiation Oncology [facility] History of Present Illness Reason for Consultation: Prior history of breast cancer patient presenting with acute lower back pain and evidence of diffuse metastatic bony disease. Requesting Physician: Feliciano Ceballos MD Attending Physician: Rosalie Barriga MD History of Present Illness Ms. Vaca is a 77-year-old female who presented with left-sided chest pain and work-up revealed a breast cancer with metastasis. 01/09/2022. Patient undergoes CT of the chest with contrast. This shows extensive mixed lytic and blastic bony lesion seen throughout the visualized bony structures of the chest consistent with metastatic disease. An 8 mm left lateral breast nodule was nonspecific with a few asymmetrically enlarged and hyperenhancing left axillary lymph nodes. This could represent the breast primary with axillary adenopathy. Scattered micronodules are seen within the upper lung zones measuring up to 3 mm. These were nonspecific with metastatic disease considered less likely. Metastatic bony lesions resulted in pathologic fracture of the mid sternum, bilateral ribs and thoracic vertebral bodies. A T10 pathologic compression fracture is noted with mild retropulsion and mild epidural involvement of soft tissue component resulting in mild central canal narrowing at this level. There is no severe central canal stenosis appreciated. 01/14/2022. Patient undergoes diagnostic mammogram. Patient is noted to have a family medical history including breast cancer in 2 relatives (grandmother (maternal) (age of onset 40) and mother (age of onset 80)). Targeted ultrasound demonstrated a 1.1 x 1.1 x 0.5 cm predominantly hypoechoic lesion with hyperechoic component at the 2 o'clock position 10 cm from the nipple in the axillary tail. This correlated with the focal asymmetry seen in the upper outer posterior depth of the mammogram near the axilla. This is thought to correlate with the 8 mm nodule seen in the lateral posterior depth on outside CT scan. A nodule had been present in prior mammograms dating back to 2013. Increased density is noted overlying the left axilla and suggestion of several lymph nodes of increased density is appreciated. Targeted ultrasound of the left axilla demonstrates several adjacent lymph nodes 1 demonstrating cortical thickening. Ultrasound-guided biopsy was recommended. 01/23/2022. Patient undergoes ultrasound guided breast biopsy and biopsy of a 1.6 x 0.7 x 1.3 cm lymph node of the left breast. Pathology of the left breast 2:00 biopsy 10 cm in the nipple revealed breast parenchyma with dense fibrosis/scar and rare microcalcifications but was negative for atypia and malignancy. Biopsy of the left axillary lymph node revealed metastatic carcinoma favoring lobular carcinoma the breast. This is a poorly differentiated lesion with the tumor cells strongly immunoreactive to pankeratin antibodies, weakly reactive to GATA3 antibodies and nonreactive to E-cadherin antibodies. Accession #: [id number]. Prognostic markers will be reported as an addendum. 02/06/2022. Patient undergoes staging PET CT scan. This showed evidence of widespread metabolically active osteolytic metastasis. Further evaluation with contrast-enhanced MRI of the brain is recommended for a 2 cm osteolytic mass within the right skull base. Appreciated is an expansile osteolytic mass with subacute pathologic fracture involving the body of the sternum, within several right-sided ribs, multiple osteolytic lesions throughout the thoracolumbar spine, spherical osteolytic mass with thinning of the right iliac bone and cortical thinning of the right iliac wing. Additional smaller osteolytic lesions are seen throughout the left iliac wing 02/16/2022. MRI of the thoracic spine is performed. Extensive osseous metastatic disease is noted throughout the thoracic spine with multilevel chronic appearing pathologic compression fractures including a moderate/severe compression fracture of T10 associated with mild retropulsion of bone. Lytic lesions within the T9 vertebral body with suspected internal hemorrhage. Plaque-like enhancement extending along the ventral epidural space from T9-T11 suspicious for epidural extension of disease with no significant mass-effect on the spinal canal. There is thoracic spondylosis with superimposed metastatic changes associated with mild spinal canal narrowing at T10-T11 and foraminal narrowing. 02/21/2022. Patient develops acute lower back pain and was seen in the emergency department. CT scan of the abdomen and pelvis performed showing extensive lytic and blastic metastasis with pathologic fracture of the lumbar vertebral bodies noted. Patient was started on fentanyl patch and oxycodone with IV Dilaudid for acute pain. She was also noted to be 6 significantly constipated from prior use of pain medication and immobility. 02/22/2022 we were asked to see kaz Vaca as an inpatient referral for complaint of severe back pain. In this chart was completed in part utilizing [employer] Speech Voice Recognition software. Grammatical errors, random word insertions, pronoun errors and incomplete sentences are occasional consequence of this system due to software limitations, ambient noise and hardware issues. Any formal questions or concerns about the content, text or information contained within the body of this dictation should be directly addressed to the provider for clarification. Jose E Scott MD Department of Radiation Oncology [facility] Allergies Allergy/AdvReac Type Severity Reaction Status Date / Time bee venom protein (honey bee) Allergy Severe ANAPHYLAXIS Verified 12/24/21 06:29 Home Medications Medication Instructions Recorded Confirmed Type Vitamin D3 Complete 50 mg PO DAILY 11/20/21 12/24/21 History aspirin 81 mg chewable tablet 81 mg PO DAILY 11/20/21 12/24/21 History atorvastatin 40 mg tablet 40 mg PO HS 11/20/21 12/24/21 History calcium carbonate 333 mg-magnesium 1 tab PO DAILY 11/20/21 12/24/21 History oxide 133 mg-zinc sulf 5 mg tablet coenzyme Q10 100 mg capsule 100 mg PO DAILY 11/20/21 12/24/21 History (CoQ-10) cyanocobalamin (vitamin B-12) 1,000 mcg PO DAILY 11/20/21 12/24/21 History 1,000 mcg tablet (Vitamin B-12) multivitamin 1 tab PO DAILY 11/20/21 12/24/21 History omega-3 fatty acids 2,000 mg PO DAILY 11/20/21 12/24/21 History pyridoxine (vitamin B6) 100 mg 100 mg PO DAILY 11/20/21 12/24/21 History tablet (Vitamin B-6) vitamin A 2,400 mcg capsule 2,400 mcg PO DAILY 11/20/21 12/24/21 History vitamin A-vitamin C-vit E-min 1 tab PO DAILY 11/20/21 12/24/21 History tablet vitamin B complex 1 cap PO DAILY 11/20/21 12/24/21 History vitamin E (dl, acetate) 180 mg 180 mg PO DAILY 11/20/21 12/24/21 History (400 unit) capsule letrozole 2.5 mg tablet 2.5 mg PO DAILY 02/22/22 02/22/22 History Patient History Medical History Nausea and vomiting after administration of anesthetic agent Osteoarthritis Surgical History History of arthroscopy of right knee mensicus repair History of colonoscopy History of fusion of cervical spine (~2002) C7--normal ROM History of left cataract surgery History of partial hysterectomy History of wisdom tooth extraction Family History Other No family history of adverse response to anesthesia Social History Smoking Status: Never smoker Second Hand Exposure: No; Hx Alcohol Use: No Hx Substance Use: No Preferred Language: Luxembourgish Communication Ability: Effective Database Developer Required: No Beliefs That Will Affect Care: None marital status: Current Living Situation: Spouse How many Children do You have: 2 Other Information That Helps Us Care for You: No Feels Safe at Home: Yes Safety Concerns: Feels Safe At This Time Assistive Devices: None Review of Systems Constitutional: + fatigue and + weakness; no fever Eyes: no worsening vision Ear, Nose, Mouth, Throat: no hearing loss Respiratory: Shortness of breath with movement. Related to pain. Cardiovascular: Additional Comments: Chest pain occurs with movement. Tenderness of sternum. Gastrointestinal: + nausea and + constipation Integumentary: no rash Neurologic: no numbness Psychiatric: + anxiety Physical Exam Constitutional: well developed and well nourished Eyes: PERRL, conjunctivae normal, anicteric sclerae ENMT: Ears: no hearing impairment Respiratory: normal respiratory effort, lungs clear to auscultation Cardiovascular: Rate/Rhythm: regular rate and regular rhythm Gastrointestinal (Abdomen): normal bowel sounds, soft, nontender, no hepatosplenomegaly Neurologic: PERRL, EOMI, accommodation nl, no face palsy, no dysarthria Psychiatric: A+Ox3, euthymic affect Lymphatic: + axillary lymphadenopathy (Left) Results (Rad Onc) Laboratory Results: were reviewed and pertinent findings noted in HPI Pathology Results: were reviewed and pertinent findings noted in HPI Imaging Studies: were reviewed and pertinent findings noted in HPI Time Spent Attending This documentation has been prepared in full or in part by Sumi BELTRAN acting as a scribe under my direction. I, Dr. Scott personally reviewed the services described and have reviewed the documentation to ensure its accuracy. I spent 15 minutes with direct face to face interaction with the patient which included obtaining clinical information, recommending a plan of action and answering questions. I spent 25 minutes reviewing her scans and chart and preparation of this document. RAJ
[2022-02-22] MEDS: CHECK fentaNYL PATCH PLACEMENT SCH ×2 (15:53→23:08)
[2022-02-22] MEDS: ATORVASTATIN 40 MG TAB PO SCH (20:33)
[2022-02-23 05:54] LABS: Hematocrit (blood only) 37.5 % (37-47); Hemoglobin 12.3 g/dL (12.0-16.0); Mean Corpuscular Hemoglobin 29.5 pg (25-34); Mean Corpuscular Hgb Conc 32.8 g/dL (32-36); Mean Corpuscular Volume 89.9 fL (80-100); Mean Platelet Volume 8.9 fL (7.4-10.4); Platelet Count 268 K/uL (130-400); RDW Coefficient of Variation 14.6 % (11.5-14.5); RDW Standard Deviation 47.7 fL (36.4-46.3); Red Blood Count 4.17 M/uL (4.2-5.4); White Blood Count 9.56 K/uL (4.8-10.8)
[2022-02-23 06:08] LABS: BUN Creatinine Ratio 26.2 (10-20); Calcium 9.1 mg/dl (8.5-10.1); Creatinine Clr Calc Pharmacy 71.4 ml/min; Est GFR (African American) 101.3 ml/min; Est GFR (Non-African American) 87.4 ml/min; Potassium 4.3 mmol/L (3.5-5.1)
[2022-02-23] MEDS: oxyCODONE HCL IR 5 MG TAB (IMMEDIATE RELEASE) PO PRN ×3 (07:28→22:27)
[2022-02-23 07:44] LABS: Estimated Average Glucose 131 mg/dl; Hemoglobin A1C 6.2 % (4.5-5.6)
[2022-02-23] MEDS: ENOXAPARIN INJ 40 MG/0.4 ML SYR SQ SCH (08:33)
[2022-02-23] MEDS: ASPIRIN 81 MG CHEW PO SCH (08:33)
[2022-02-23] MEDS: SENNA 8.6 MG TAB PO SCH (08:33)
[2022-02-23] MEDS: CHECK fentaNYL PATCH PLACEMENT SCH ×2 (08:34→15:16)
[2022-02-23] MEDS: DOCUSATE SODIUM 100 MG CAP PO SCH ×2 (08:34→21:03)
[2022-02-23] MEDS: LETROZOLE 2.5 MG TAB PO SCH (09:59)
[2022-02-23] MEDS: HYDROmorphone INJ 0.5 MG/0.5 ML SYR IV PRN ×3 (11:25→18:02)
[2022-02-23] MEDS: POLYETHYLENE (MIRALAX) 17 GM PACK PO SCH (13:45)
[2022-02-23] MEDS: ACETAMINOPHEN 325 MG TAB PO PRN (15:16)
[2022-02-23] MEDS: bisacodyL 10 MG SUPP PR STA ×2 (15:16→18:00)
--- NOTE | 2022-02-23 15:20 | Hospitalist Progress Note ---
Date of Service February 23, 2022 Assessment & Plan (1) Breast cancer: (2) Intractable low back pain: (3) Pathologic compression fracture of lumbar vertebra: Plan: Patient has intractable low back pain I reviewed patient's outpatient PET scan, MRI T-spine that were done outpatient on 02/06/2022 02/16/2022 respectively. These show widespread metabolically active osteolytic metastasis and extensive osseous metastatic throughout thoracic spine respectively. Abdominal pelvic CT on presentation redemonstrated extensive mixed lytic and sclerotic lesions and pathological fractures. Pain management recommendations noted. Continue Dilaudid, oxycodone and fentanyl patch. Radiation oncology eval noted. Plan to do CT stimulation on Friday and start radiation treatment Continue letrozole. Bowel regimen. Lovenox subcu for DVT prophylaxis Admission and Anticipated Discharge Date Admission Date: February 21, 2022 Subjective Patient seen and examined. Reports severe low back pain with movement but minimal when laying still Denies any headache, dizziness Denies any chest pain, cough, shortness of breath, palpitations Denies any nausea, vomiting, abdominal pain, diarrhea. Has constipation. passing flatus Denies fevers, chills Denies dysuria, frequency or urgency Physical Exam Constitutional: + well hydrated Eyes: PERRL, conjunctivae normal, anicteric sclerae ENMT: external ear and nose normal, oropharynx normal Respiratory: normal respiratory effort, lungs clear to auscultation Cardiovascular: Rate/Rhythm: regular rate and regular rhythm S1 S2 Gastrointestinal (Abdomen): normal bowel sounds, soft, nontender, no hepatosplenomegaly Musculoskeletal: No pedal edema Neurologic: PERRL, EOMI, accommodation nl, no face palsy, no dysarthria Psychiatric: A+Ox3, euthymic affect Results & Data Results & Data ([facility]) Vital Signs (Past 12 Hours) Vital Signs Temp Pulse Resp BP Pulse Ox 02/23/22 14:56 37.3 C 68 16 148/82 H 92 02/23/22 07:41 36.6 C 67 16 143/77 H 91 Laboratory Results Abnormal lab results 02/23/22 02/23/22 02/23/22 Range/Units 05:27 05:27 05:27 RBC 4.17 L (4.2-5.4) M/uL RDW Std Deviation 47.7 H (36.4-46.3) fL RDW Coeff of Adeel 14.6 H (11.5-14.5) % Sodium 134 L (136-145) mmol/L BUN/Creatinine Ratio 26.2 H (10-20) Glucose 108 H (70-99(Fasting)) mg/dl Hemoglobin A1c 6.2 H (4.5-5.6) % (1) Pathologic compression fracture of lumbar vertebra Encounter type: initial encounter Qualified Code(s): M48.56XA - Collapsed vertebra, not elsewhere classified, lumbar region, initial encounter for fracture
[2022-02-23] MEDS: ATORVASTATIN 40 MG TAB PO SCH (21:03)
[2022-02-24] MEDS: CHECK fentaNYL PATCH PLACEMENT SCH ×4 (00:36→23:19)
[2022-02-24] MEDS: oxyCODONE HCL IR 5 MG TAB (IMMEDIATE RELEASE) PO PRN ×5 (04:22→22:14)
[2022-02-24] MEDS: SENNA 8.6 MG TAB PO SCH (08:44)
[2022-02-24] MEDS: ASPIRIN 81 MG CHEW PO SCH (08:44)
[2022-02-24] MEDS: DOCUSATE SODIUM 100 MG CAP PO SCH ×2 (08:44→20:46)
[2022-02-24] MEDS: POLYETHYLENE (MIRALAX) 17 GM PACK PO SCH (08:44)
[2022-02-24] MEDS: LETROZOLE 2.5 MG TAB PO SCH (08:44)
[2022-02-24] MEDS: ENOXAPARIN INJ 40 MG/0.4 ML SYR SQ SCH (08:45)
[2022-02-24] MEDS ORDERED: bisacodyL 10 MG SUPP PR STA (13:27)
--- NOTE | 2022-02-24 15:20 | Hospitalist Progress Note ---
Date of Service February 24, 2022 Assessment & Plan (1) Breast cancer: (2) Intractable low back pain: (3) Pathologic compression fracture of lumbar vertebra: Plan: Patient has intractable low back pain Outpatient PET scan, MRI T-spine that were done outpatient on 02/06/2022 02/16/2022 respectively. These show widespread metabolically active osteolytic metastasis and extensive osseous metastatic throughout thoracic spine respectively. Abdominal pelvic CT on presentation redemonstrated extensive mixed lytic and sclerotic lesions and pathological fractures. Pain management recommendations noted. Continue Dilaudid, oxycodone and fentanyl patch. Radiation oncology eval noted. Plan to do CT stimulation tomorrow and start radiation treatment Continue letrozole. Bowel regimen. Lovenox subcu for DVT prophylaxis Admission and Anticipated Discharge Date Admission Date: February 21, 2022 Subjective Patient seen and examined. Reports current pain regimen controls her low back pain especially when she is laying still Pain is worse with activity Denies any headache, dizziness Denies any chest pain, cough, shortness of breath, palpitations Denies any nausea, vomiting, abdominal pain, diarrhea. Reported constipation. However, RN reported patient had a large BM shortly after my evaluation Denies fevers, chills Denies dysuria, frequency or urgency Physical Exam Constitutional: + well hydrated Eyes: PERRL, conjunctivae normal, anicteric sclerae ENMT: external ear and nose normal, oropharynx normal Respiratory: normal respiratory effort, lungs clear to auscultation Cardiovascular: Rate/Rhythm: regular rate and regular rhythm S1 S2 Gastrointestinal (Abdomen): normal bowel sounds, soft, nontender, no hepatosplenomegaly Musculoskeletal: No pedal edema Back pain with movement of the legs limits exam Neurologic: PERRL, EOMI, accommodation nl, no face palsy, no dysarthria Psychiatric: A+Ox3, euthymic affect Results & Data Results & Data ([facility]) Vital Signs (Past 12 Hours) Vital Signs Temp Pulse Resp BP Pulse Ox 02/24/22 07:05 36.9 C 72 16 133/76 91 (1) Pathologic compression fracture of lumbar vertebra Encounter type: initial encounter Qualified Code(s): M48.56XA - Collapsed vertebra, not elsewhere classified, lumbar region, initial encounter for fracture
[2022-02-24] MEDS: ATORVASTATIN 40 MG TAB PO SCH (20:45)
[2022-02-24] MEDS: HYDROmorphone INJ 0.5 MG/0.5 ML SYR IV PRN (23:17)
[2022-02-25 07:14] LABS: Hemoglobin 12.3 g/dL (12.0-16.0); Mean Corpuscular Hgb Conc 32.4 g/dL (32-36); Mean Corpuscular Volume 89.6 fL (80-100); Mean Platelet Volume 8.8 fL (7.4-10.4); Platelet Count 326 K/uL (130-400); RDW Coefficient of Variation 14.7 % (11.5-14.5); RDW Standard Deviation 48.6 fL (36.4-46.3); Red Blood Count 4.24 M/uL (4.2-5.4)
[2022-02-25] MEDS: CHECK fentaNYL PATCH PLACEMENT SCH ×3 (07:34→23:14)
[2022-02-25] MEDS: HYDROmorphone INJ 0.5 MG/0.5 ML SYR IV PRN ×2 (07:34→19:47)
[2022-02-25 07:38] LABS: Calcium 9.2 mg/dl (8.5-10.1); Est GFR (African American) 99.8 ml/min; Est GFR (Non-African American) 86.1 ml/min
[2022-02-25] MEDS: SENNA 8.6 MG TAB PO SCH (09:31)
[2022-02-25] MEDS: LETROZOLE 2.5 MG TAB PO SCH (09:31)
[2022-02-25] MEDS: DOCUSATE SODIUM 100 MG CAP PO SCH ×2 (09:31→20:25)
[2022-02-25] MEDS: ASPIRIN 81 MG CHEW PO SCH (09:31)
[2022-02-25] MEDS: POLYETHYLENE (MIRALAX) 17 GM PACK PO SCH (09:32)
[2022-02-25] MEDS: ENOXAPARIN INJ 40 MG/0.4 ML SYR SQ SCH (09:33)
[2022-02-25] MEDS: fentaNYL 12 MCG/HR TDSY TD SCH (09:37)
[2022-02-25] MEDS: oxyCODONE HCL IR 5 MG TAB (IMMEDIATE RELEASE) PO PRN ×2 (12:33→20:27)
--- NOTE | 2022-02-25 14:00 | Hospitalist Progress Note ---
Date of Service February 25, 2022 Assessment & Plan (1) Breast cancer: (2) Intractable low back pain: (3) Pathologic compression fracture of lumbar vertebra: Plan: Patient has intractable low back pain Outpatient PET scan, MRI T-spine that were done outpatient on 02/06/2022 02/16/2022 respectively. These show widespread metabolically active osteolytic metastasis and extensive osseous metastatic throughout thoracic spine respectively. Abdominal pelvic CT on presentation redemonstrated extensive mixed lytic and sclerotic lesions and pathological fractures. Pain management recommendations noted. Continue Dilaudid, oxycodone and fentanyl patch. Start cymbalta 30mg daily Asked pain management to reevaluate pain control Radiation oncology eval noted. Patient reported she had CT stimulation this morning Rad onc to start radiation treatment Continue letrozole. Bowel regimen. Lovenox subcu for DVT prophylaxis Admission and Anticipated Discharge Date Admission Date: February 21, 2022 Subjective Patient seen and examined. Reports current pain regimen controls her low back pain only when laying still Pain is worse with any movement and limits activity Denies any headache, dizziness Denies any chest pain, cough, shortness of breath, palpitations Denies any nausea, vomiting, abdominal pain, diarrhea. Constipation is resolved Denies fevers, chills Denies dysuria, frequency or urgency Physical Exam Constitutional: + well hydrated Eyes: PERRL, conjunctivae normal, anicteric sclerae ENMT: external ear and nose normal, oropharynx normal Respiratory: normal respiratory effort, lungs clear to auscultation Cardiovascular: Rate/Rhythm: regular rate and regular rhythm S1 S2 Gastrointestinal (Abdomen): normal bowel sounds, soft, nontender, no hepatosplenomegaly Musculoskeletal: Moves extremities appropriately Neurologic: PERRL, EOMI, accommodation nl, no face palsy, no dysarthria Psychiatric: A+Ox3, euthymic affect Results & Data Results & Data ([facility]) Vital Signs (Past 12 Hours) Vital Signs Temp Pulse Pulse Resp BP Pulse Ox 02/25/22 11:40 36.6 C 73 16 120/60 92 02/25/22 07:28 36.8 C 67 16 115/65 91 Laboratory Results Abnormal lab results 02/25/22 02/25/22 Range/Units 06:37 06:37 RDW Std Deviation 48.6 H (36.4-46.3) fL RDW Coeff of Daeel 14.7 H (11.5-14.5) % BUN/Creatinine Ratio 25.0 H (10-20) Glucose 100 H (70-99(Fasting)) mg/dl (1) Pathologic compression fracture of lumbar vertebra Encounter type: initial encounter Qualified Code(s): M48.56XA - Collapsed vertebra, not elsewhere classified, lumbar region, initial encounter for fracture
[2022-02-25] MEDS: DULoxetine HCL 30 MG CAP PO SCH (17:10)
[2022-02-25] MEDS: ATORVASTATIN 40 MG TAB PO SCH (20:25)
[2022-02-26] MEDS: oxyCODONE HCL IR 5 MG TAB (IMMEDIATE RELEASE) PO PRN ×3 (07:44→20:37)
[2022-02-26] MEDS: CHECK fentaNYL PATCH PLACEMENT SCH ×3 (07:47→17:54)
[2022-02-26] MEDS ORDERED: fentaNYL 25 MCG/HR TDSY TD SCH (08:15)
[2022-02-26] MEDS: ENOXAPARIN INJ 40 MG/0.4 ML SYR SQ SCH (08:47)
[2022-02-26] MEDS: ASPIRIN 81 MG CHEW PO SCH (08:47)
[2022-02-26] MEDS: DULoxetine HCL 30 MG CAP PO SCH (08:47)
[2022-02-26] MEDS: DOCUSATE SODIUM 100 MG CAP PO SCH ×2 (08:47→20:38)
[2022-02-26] MEDS: POLYETHYLENE (MIRALAX) 17 GM PACK PO SCH (08:47)
[2022-02-26] MEDS: LETROZOLE 2.5 MG TAB PO SCH (08:47)
[2022-02-26] MEDS: SENNA 8.6 MG TAB PO SCH (08:47)
--- NOTE | 2022-02-26 09:13 | Pain Management Progress Note ---
Date of Service February 26, 2022 Assessment & Plan (1) Intractable low back pain: (2) Pathologic compression fracture of lumbar vertebra: Encounter type: initial encounter Qualified Code(s): M48.56XA - Collapsed vertebra, not elsewhere classified, lumbar region, initial encounter for fracture (3) Breast cancer: Plan: 1. Will transition fentanyl to 25 mcg every 72 hours. Would recommend placement of the fentanyl patch to be on the chest, upper back, upper arms or sides of waist as recommended, not in the lumbar region. 2. Will trial Lidoderm patch applied to the lumbar region at site of maximal tenderness 3. We discussed expectations of benefit of pursuing radiation therapy which is planned to start over the next 1-2 days 4. Patient will be need to be discharged with Narcan availability 5. Will continue to follow Admission and Anticipated Discharge Date Admission Date: February 21, 2022 Subjective Mrs. Vaca is a 77-year-old white female who remains hospitalized due to intractable axial back pain with known metastatic breast cancer with pathologic fracture of the lumbar vertebrae. Patient was initiated on fentanyl patch at 12 mcg/h on 02/21/2022 and continue to utilize Oxy IR 30-40 mg daily and occasional hydromorphone IV for breakthrough pain. She continues with significant difficulties with axial low back pain with any movement especially any out of bed activity to the bathroom. Her pain is 100% axial without a radicular radia ting component. She does find Oxy IR to be moderately helpful for 2-3 hours only. She is tolerating the fentanyl patch without notable side effects. There is plan to start radiation therapy today or tomorrow. Reports her current pain is 10/10 as she just returned from the bathroom. Pain ranging between a 7- 10/10. Patient is moving her bowels. Patient has no further constitutional complaints. Plan of care discussed with Dr. Deb Roach. Pain Assessment Pain Assessment Full Body Front + Back: 1. Axial low back pain Physical Exam Physical Exam: General: Patient lying in the left lateral decubitus position upon entering. Speech and thought process appropriate. Cognition intact. Back/spine: Some generalized tenderness of the lumbosacral region to palpation and percussion. Fentanyl patch is in place in the right lower lumbar paravertebral region. No paravertebral tenderness. No skin breakdown. Lower extremities: Sensation intact without deficit. Strength testing 5/5 and equal. No appreciable edema. Neurologic: Cranial nerves grossly intact. Ambulation not witnessed.
[2022-02-26] MEDS: LIDOCAINE 5% 1 PATCH TD SCH (09:28)
[2022-02-26] MEDS: ACETAMINOPHEN 325 MG TAB PO PRN (14:21)
--- NOTE | 2022-02-26 14:32 | Hospitalist Progress Note ---
Date of Service February 26, 2022 Assessment & Plan (1) Breast cancer: (2) Intractable low back pain: (3) Pathologic compression fracture of lumbar vertebra: Plan: Patient has intractable low back pain Outpatient PET scan, MRI T-spine that were done outpatient on 02/06/2022 02/16/2022 respectively. These show widespread metabolically active osteolytic metastasis and extensive osseous metastatic throughout thoracic spine respectively. Abdominal pelvic CT on presentation redemonstrated extensive mixed lytic and sclerotic lesions and pathological fractures. Pain management recommendations noted. Fentanyl patch increased to 25mcg q72h and lidocaine patch added by Pain management team Continue dilaudid prn and oxycodone prn Continue cymbalta 30mg daily Rad onc to start radiation treatment today Continue letrozole. Bowel regimen. Lovenox subcu for DVT prophylaxis Admission and Anticipated Discharge Date Admission Date: February 21, 2022 Subjective Patient seen and examined. Reports only low back pain. Severe with movement/activity Denies any headache, dizziness Denies any chest pain, cough, shortness of breath, palpitations Denies any nausea, vomiting, abdominal pain, diarrhea. Had BM this morning Denies fevers, chills Denies dysuria, frequency or urgency Physical Exam Constitutional: + well hydrated Eyes: PERRL, conjunctivae normal, anicteric sclerae ENMT: external ear and nose normal, oropharynx normal Respiratory: normal respiratory effort, lungs clear to auscultation Cardiovascular: Rate/Rhythm: regular rate and regular rhythm S1 S2 Gastrointestinal (Abdomen): normal bowel sounds, soft, nontender, no hepatosplenomegaly Musculoskeletal: No pedal edema Neurologic: PERRL, EOMI, accommodation nl, no face palsy, no dysarthria Psychiatric: A+Ox3, euthymic affect Results & Data Results & Data ([facility]) Vital Signs (Past 12 Hours) Vital Signs Temp Pulse Resp BP Pulse Ox 02/26/22 10:11 36.7 C 70 15 133/84 92 02/26/22 07:43 36.3 C L 57 L 18 133/74 92 (1) Pathologic compression fracture of lumbar vertebra Encounter type: initial encounter Qualified Code(s): M48.56XA - Collapsed vertebra, not elsewhere classified, lumbar region, initial encounter for fracture
[2022-02-26] MEDS: HYDROmorphone INJ 0.5 MG/0.5 ML SYR IV PRN (15:49)
[2022-02-26] MEDS: ATORVASTATIN 40 MG TAB PO SCH (20:38)
[2022-02-27] MEDS: CHECK fentaNYL PATCH PLACEMENT SCH ×8 (01:33→23:15)
[2022-02-27] MEDS: HYDROmorphone INJ 0.5 MG/0.5 ML SYR IV PRN ×4 (05:43→23:14)
[2022-02-27] MEDS: oxyCODONE HCL IR 5 MG TAB (IMMEDIATE RELEASE) PO PRN ×2 (06:47→13:52)
[2022-02-27] MEDS ORDERED: HYDROmorphone INJ 0.5 MG/0.5 ML SYR IV STA (07:33)
[2022-02-27 07:35] LABS: Hematocrit (blood only) 38.5 % (37-47); Hemoglobin 12.3 g/dL (12.0-16.0); Mean Corpuscular Hemoglobin 28.1 pg (25-34); Mean Corpuscular Hgb Conc 31.9 g/dL (32-36); Mean Corpuscular Volume 88.1 fL (80-100); Mean Platelet Volume 8.6 fL (7.4-10.4); Platelet Count 357 K/uL (130-400); RDW Coefficient of Variation 14.7 % (11.5-14.5); RDW Standard Deviation 47.2 fL (36.4-46.3); Red Blood Count 4.37 M/uL (4.2-5.4)
[2022-02-27] MEDS ORDERED: fentaNYL 12 MCG/HR TDSY TD SCH (07:45)
[2022-02-27] MEDS: LIDOCAINE 5% 1 PATCH TD SCH (07:55)
[2022-02-27 08:04] LABS: BUN Creatinine Ratio 35.4 (10-20); Calcium 9.2 mg/dl (8.5-10.1); Est GFR (African American) 99.3 ml/min; Est GFR (Non-African American) 85.6 ml/min; Potassium 4.1 mmol/L (3.5-5.1)
--- NOTE | 2022-02-27 09:12 | Pain Management Progress Note ---
Date of Service February 27, 2022 Assessment & Plan (1) Intractable low back pain: (2) Pathologic compression fracture of lumbar vertebra: Encounter type: initial encounter Qualified Code(s): M48.56XA - Collapsed vertebra, not elsewhere classified, lumbar region, initial encounter for fracture (3) Breast cancer: Plan: 1. Will transition fentanyl to 37 mcg every 72 hours. Will add 12 mcg patch to her current 25 mcg patch. Recommend placement of the fentanyl patch to be on the chest, upper back, upper arms or sides of waist as recommended, not in the lumbar region. 2. Will transition hydromorphone from 0.5 mg every 3 hours to 1 mg every 2 hours for as needed breakthrough pain. Patient was encouraged to utilize immediately prior to transport for radiation therapy. 3. Patient will be need to be discharged with Narcan availability 4. Will continue to follow Admission and Anticipated Discharge Date Admission Date: February 21, 2022 Subjective Mrs. Vaca is a 77-year-old white female who remains hospitalized due to intractable axial back pain with known metastatic breast cancer with pathologic fracture of the lumbar vertebrae. Fentanyl was transitioned from 12 mcg/h to 25 mcg/h yesterday. She has not noticed much change at this time. She has continued to utilize Oxy IR 30-40 mg daily and occasional hydromorphone IV for breakthrough pain. She reported difficulty tolerating radiation yesterday due to increased pain with movement. She reports her pain is slightly worse this morning compared to yesterday. She continues with significant difficulties with axial low back pain with any movement especially any out of bed activity to the bathroom. Her pain is 100% axial without a radicular radiating component. She does find Oxy IR to be moderately helpful for 2-3 hours only. She is tolerating the fentanyl patch without notable side effects. Patient is reporting her current pain is 10/10. She is is reporting poor sleep quality and quantity. Her current pain ranging between a 8-10/10. Patient is moving her bowels. Patient has no further constitutional complaints. Plan of care discussed with Dr. Deb Roach. Pain Assessment Pain Assessment Full Body Front + Back: 1. Axial lumbar spine Physical Exam Physical Exam: General: Patient lying supine upon entering. Speech and thought process appropriate. Cognition intact. Lower extremities: Sensation intact without deficit. Strength testing 5/5 and equal. No appreciable edema. Neurologic: Cranial nerves grossly intact. Ambulation not witnessed.
[2022-02-27] MEDS: DOCUSATE SODIUM 100 MG CAP PO SCH ×2 (10:03→20:34)
[2022-02-27] MEDS: POLYETHYLENE (MIRALAX) 17 GM PACK PO SCH (10:03)
[2022-02-27] MEDS: ENOXAPARIN INJ 40 MG/0.4 ML SYR SQ SCH (10:04)
[2022-02-27] MEDS: DULoxetine HCL 30 MG CAP PO SCH (10:05)
[2022-02-27] MEDS: ASPIRIN 81 MG CHEW PO SCH (10:05)
[2022-02-27] MEDS: LETROZOLE 2.5 MG TAB PO SCH (10:06)
[2022-02-27] MEDS: SENNA 8.6 MG TAB PO SCH (10:06)
--- NOTE | 2022-02-27 19:14 | Hospitalist Progress Note ---
Date of Service February 27, 2022 Assessment & Plan (1) Breast cancer: (2) Intractable low back pain: (3) Pathologic compression fracture of lumbar vertebra: Plan: Pathological fracture of lumbar vertebrae Intractable back pain History of breast cancer with metastasis --CT :Redemonstration of extensive mixed lytic and sclerotic lesions and pathologic fractures. --Outpatient PET scan, MRI T-spine that were done outpatient on 02/06/2022 02/16/2022 respectively. These show widespread metabolically active osteolytic metastasis and extensive osseous metastatic throughout thoracic spine respectively. -- Appreciate radiation oncology, pain management input Continue radiation Pain control --Continue fentanyl, oxycodone, Dilaudid as needed Bowel regimen to prevent constipation Also started on Cymbalta H/O metastatic breast cancer Continue letrozole. DVT Px: Lovenox SQ Admission and Anticipated Discharge Date Admission Date: February 21, 2022 Subjective Patient is seen and examined at bedside States having back pain Had radiation therapy earlier today Denies any chest pain, shortness of breath, dizziness, nausea, abdominal pain Offers no other complaints Review of Systems Review of Systems: All systems reviewed & are unremarkable except as noted in Subjective Physical Exam Physical Exam: Physical Exam: Vitals signs as noted above General Appearance:Moderately built and nourished, no apparent distress Head: normocephalic, Atraumatic Eyes: normal inspection, EOMI Neck: supple, Trachea midline Respiratory/Chest: Normal breath sounds, CTA, No accessory muscle use Cardiovascular: S1, S2, No murmur Abdomen/GI:Soft, Non tender, Bowel sounds present Extremities/Musculoskeletal:normal inspection, no edema Neurologic/Psych:AAOX3, grossly no focal neurological deficits Skin: normal color, warm Results & Data Results & Data ([facility]) Vital Signs (Past 12 Hours) Vital Signs Temp Pulse Pulse Resp BP Pulse Ox 02/27/22 15:41 36.5 C 80 18 105/64 95 02/27/22 11:19 36.7 C 64 16 120/60 93 02/27/22 07:53 36.6 C 82 17 120/80 94 Laboratory Results Short CBC 02/27/22 Range/Units 07:14 WBC 9.80 (4.8-10.8) K/uL Hgb 12.3 (12.0-16.0) g/dL Hct 38.5 (37-47) % Plt Count 357 (130-400) K/uL BMP 02/27/22 07:14 Sodium 135 L Potassium 4.1 Chloride 101 Carbon Dioxide 26 BUN 23 Creatinine 0.65 Glucose 121 H Calcium 9.2 (1) Pathologic compression fracture of lumbar vertebra Encounter type: initial encounter Qualified Code(s): M48.56XA - Collapsed vertebra, not elsewhere classified, lumbar region, initial encounter for fracture
[2022-02-27] MEDS: ATORVASTATIN 40 MG TAB PO SCH (20:34)
[2022-02-28] MEDS: oxyCODONE HCL IR 5 MG TAB (IMMEDIATE RELEASE) PO PRN ×4 (00:22→17:24)
[2022-02-28] MEDS: ACETAMINOPHEN 325 MG TAB PO PRN ×2 (02:10→16:29)
[2022-02-28] MEDS: HYDROmorphone INJ 0.5 MG/0.5 ML SYR IV PRN ×3 (03:35→17:55)
[2022-02-28] MEDS: CHECK fentaNYL PATCH PLACEMENT SCH ×4 (07:40→23:57)
[2022-02-28] MEDS: DULoxetine HCL 30 MG CAP PO SCH (09:06)
[2022-02-28] MEDS: ASPIRIN 81 MG CHEW PO SCH (09:06)
--- NOTE | 2022-02-28 09:06 | Pain Management Progress Note ---
Date of Service February 28, 2022 Assessment & Plan (1) Intractable low back pain: (2) Pathologic compression fracture of lumbar vertebra: Encounter type: initial encounter Qualified Code(s): M48.56XA - Collapsed vertebra, not elsewhere classified, lumbar region, initial encounter for fracture (3) Breast cancer: Plan: 1. Will transition fentanyl to 50 mcg every 72 hours. Please remove her 25 mcg and 12 mcg patches today and transition to the 50 mcg dose. Recommend placement of the fentanyl patch to be on the chest, upper back, upper arms or sides of waist as recommended, not in the lumbar region. 2. Maintain hydromorphone 1 mg every 2 hours for as needed breakthrough pain. 3. Patient will be need to be discharged with Narcan availability. 4. Consider evaluation with orthotics for LSO bracing due to her pathologic compression fracture. An order will be placed. 5. Will continue to follow Admission and Anticipated Discharge Date Admission Date: February 21, 2022 Subjective Mrs. Vaca is a 77-year-old white female who has metastatic breast cancer affecting the lumbar spine with pathologic compression fracture of the lumbar vertebrae who is experiencing persisting difficulties with axial low back pain. She was further transitioned to fentanyl 37 mcg patch yesterday. Hydromorphone was transition to 1 mg every 2 hours for as needed breakthrough pain. Patient is reporting improved pain control with hydromorphone, but continues to e xperience axial low back pain which she is rating a 9/10. Her pain ranges between a 5-9/10. Her pain is aggravated with positional change. She continues to deny radicular pattern pain. She did undergo radiation yesterday and is planned for further radiation therapy today. She did not move her bowels yesterday. She denies abdominal fullness. Dietary intake has been minimal per her report. Patient denies any notable side effects to her current opiates. She is experiencing some daytime sedation but is reporting poor sleep quality and quantity. Plan of care discussed with Dr. Deb Roach. Pain Assessment Pain Assessment Full Body Front + Back: 1. Axial lumbar spine Pain scale - at its best (0-10): 5 Pain scale - at its worst (0-10): 9 Physical Exam Physical Exam: General: Patient was seen in radiation oncology as she was transported there for treatment. Patient lying supine in no acute distress. Speech and thought process appropriate. Cognition intact. Lower extremities: Sensation intact without deficit. Strength testing 5/5 and equal. No appreciable edema. Neurologic: Cranial nerves grossly intact. Ambulation not witnessed.
[2022-02-28] MEDS: LIDOCAINE 5% 1 PATCH TD SCH (09:07)
[2022-02-28] MEDS: ENOXAPARIN INJ 40 MG/0.4 ML SYR SQ SCH (09:07)
[2022-02-28] MEDS: DOCUSATE SODIUM 100 MG CAP PO SCH ×2 (09:07→20:06)
[2022-02-28] MEDS: LETROZOLE 2.5 MG TAB PO SCH (09:07)
[2022-02-28] MEDS: SENNA 8.6 MG TAB PO SCH (09:07)
[2022-02-28] MEDS: POLYETHYLENE (MIRALAX) 17 GM PACK PO SCH (09:08)
[2022-02-28] MEDS ORDERED: fentaNYL 50 MCG/HR TDSY TD SCH (09:15)
[2022-02-28 10:35] LABS: Creatinine Clr Calc Pharmacy 80.6 ml/min; Est GFR (African American) 105.5 ml/min
--- NOTE | 2022-02-28 17:58 | Hospitalist Progress Note ---
Date of Service February 28, 2022 Assessment & Plan (1) Breast cancer: (2) Intractable low back pain: (3) Pathologic compression fracture of lumbar vertebra: Plan: Pathological fracture of lumbar vertebrae Intractable back pain History of breast cancer with metastasis --CT :Redemonstration of extensive mixed lytic and sclerotic lesions and pathologic fractures. --Outpatient PET scan, MRI T-spine that were done outpatient on 02/06/2022 02/16/2022 respectively. These show widespread metabolically active osteolytic metastasis and extensive osseous metastatic throughout thoracic spine respectively. -- Appreciate radiation oncology, pain management input Continue radiation as per radiation oncology Pain control --Continue fentanyl, oxycodone, Dilaudid as needed Bowel regimen to prevent constipation Also started on Cymbalta Pain slowly improving H/O metastatic breast cancer Continue letrozole. DVT Px: Lovenox SQ Admission and Anticipated Discharge Date Admission Date: February 21, 2022 Subjective Patient is seen and examined at bedside States feeling much better today Back pain improving Had radiation therapy today No new complaints Denies any chest pain, shortness of breath, dizziness, nausea, abdominal pain Review of Systems Review of Systems: All systems reviewed & are unremarkable except as noted in Subjective Physical Exam Physical Exam: Physical Exam: Vitals signs as noted above General Appearance:Moderately built and nourished, no apparent distress Head: normocephalic, Atraumatic Eyes: normal inspection, EOMI Neck: supple, Trachea midline Respiratory/Chest: Normal breath sounds, CTA, No accessory muscle use Cardiovascular: S1, S2, No murmur Abdomen/GI:Soft, Non tender, Bowel sounds present Extremities/Musculoskeletal:normal inspection, no edema Neurologic/Psych:AAOX3, grossly no focal neurological deficits Skin: normal color, warm Results & Data Results & Data ([facility]) Vital Signs (Past 12 Hours) Vital Signs Temp Pulse Resp BP Pulse Ox 02/28/22 15:00 36.6 C 70 16 123/74 92 02/28/22 07:41 36.7 C 71 16 161/81 H 95 Laboratory Results BMP 02/28/22 09:14 Creatinine 0.54 L (1) Pathologic compression fracture of lumbar vertebra Encounter type: initial encounter Qualified Code(s): M48.56XA - Collapsed vertebra, not elsewhere classified, lumbar region, initial encounter for fracture
[2022-02-28] MEDS: ATORVASTATIN 40 MG TAB PO SCH (20:05)
[2022-03-01] MEDS: oxyCODONE HCL IR 5 MG TAB (IMMEDIATE RELEASE) PO PRN ×5 (00:30→23:14)
[2022-03-01] MEDS: HYDROmorphone INJ 0.5 MG/0.5 ML SYR IV PRN ×2 (02:16→07:30)
[2022-03-01] MEDS: CHECK fentaNYL PATCH PLACEMENT SCH ×3 (07:28→23:09)
[2022-03-01] MEDS: ASPIRIN 81 MG CHEW PO SCH (07:28)
[2022-03-01] MEDS: SENNA 8.6 MG TAB PO SCH (07:29)
[2022-03-01] MEDS: LETROZOLE 2.5 MG TAB PO SCH (07:29)
[2022-03-01] MEDS: DOCUSATE SODIUM 100 MG CAP PO SCH ×2 (07:29→20:07)
[2022-03-01] MEDS: DULoxetine HCL 30 MG CAP PO SCH (07:29)
[2022-03-01] MEDS: ENOXAPARIN INJ 40 MG/0.4 ML SYR SQ SCH (07:29)
[2022-03-01] MEDS: POLYETHYLENE (MIRALAX) 17 GM PACK PO SCH (07:30)
[2022-03-01] MEDS: LIDOCAINE 5% 1 PATCH TD SCH (07:30)
[2022-03-01 07:56] LABS: Hematocrit (blood only) 37.2 % (37-47); Hemoglobin 12.2 g/dL (12.0-16.0); Mean Corpuscular Hemoglobin 28.9 pg (25-34); Mean Corpuscular Hgb Conc 32.8 g/dL (32-36); Mean Corpuscular Volume 88.2 fL (80-100); Mean Platelet Volume 8.5 fL (7.4-10.4); Platelet Count 379 K/uL (130-400); RDW Coefficient of Variation 14.8 % (11.5-14.5); RDW Standard Deviation 47.5 fL (36.4-46.3); Red Blood Count 4.22 M/uL (4.2-5.4); White Blood Count 5.48 K/uL (4.8-10.8)
[2022-03-01 08:11] LABS: BUN Creatinine Ratio 22.6 (10-20); Calcium 9.4 mg/dl (8.5-10.1); Creatinine Clr Calc Pharmacy 70.2 ml/min; Est GFR (African American) 100.8 ml/min; Potassium 4.7 mmol/L (3.5-5.1)
[2022-03-01] MEDS ORDERED: METHYLNALTREXONE BROMIDE 12 MG/0.6 ML VIAL SQ PRN (08:12)
--- NOTE | 2022-03-01 08:12 | Pain Management Progress Note ---
Date of Service March 01, 2022 Assessment & Plan (1) Intractable low back pain: (2) Pathologic compression fracture of lumbar vertebra: Encounter type: initial encounter Qualified Code(s): M48.56XA - Collapsed vertebra, not elsewhere classified, lumbar region, initial encounter for fracture (3) Breast cancer: Plan: 1. Will continue fentanyl 50 mcg every 72 hours. Will continue to monitor use of as needed breakthrough med and further adjust fentanyl moving forward. 2. Maintain hydromorphone 1 mg every 2 hours for as needed breakthrough pain. 3. Patient will be need to be discharged with Narcan availability. 4. Consider evaluation with orthotics for LSO bracing due to her pathologic compression fracture. An order will be placed. 5. Patient will be written for [facility] for as needed utilization for opioid- induced constipation. 6. Will continue to follow Admission and Anticipated Discharge Date Admission Date: February 21, 2022 Subjective Mrs. Vaca is a 77-year-old white female who has metastatic breast cancer affecting the lumbar spine with pathologic compression fracture of the lumbar vertebrae who is experiencing persisting difficulties with axial low back pain. Fentanyl was further adjusted to 50 mcg every 72 hours yesterday. She is reporting a slight improvement in the severity of her pain. She continues have significant discomfort in the axial lumbar spine with movement. She is finding hydromorphone to be more effective at 1 mg. She has not noticed any significant side effects to fentanyl titration at this time. Patient continues to rate her axial low back pain between a 4-10/10. Her pain is aggravated with positional change. She continues to deny radicular pattern pain. She did move her bowels a small amount earlier today. She denies abdominal fullness. Dietary intake continues to be minimal per her report. Patient denies any notable side effects to her current opiates. She is experiencing some daytime sedation but is reporting improvement in sleep quality and quantity last night. Plan of care discussed with Dr. Deb Roach. Pain Assessment Pain Assessment Full Body Front + Back: 1. Axial lumbar spine Pain scale - at its best (0-10): 5 Pain scale - at its worst (0-10): 10 Physical Exam Physical Exam: General: Patient was seen in radiation oncology as she was transported there for treatment. Patient lying supine in no acute distress. Speech and thought process appropriate. Cognition intact. Lower extremities: Sensation intact without deficit. Strength testing 5/5 and equal. No appreciable edema. Neurologic: Cranial nerves grossly intact. Ambulation not witnessed.
--- NOTE | 2022-03-01 18:38 | Hospitalist Progress Note ---
Date of Service March 01, 2022 Assessment & Plan (1) Breast cancer: (2) Intractable low back pain: (3) Pathologic compression fracture of lumbar vertebra: Plan: Pathological fracture of lumbar vertebrae Intractable back pain History of breast cancer with metastasis --CT :Redemonstration of extensive mixed lytic and sclerotic lesions and pathologic fractures. --Outpatient PET scan, MRI T-spine that were done outpatient on 02/06/2022 02/16/2022 respectively. These show widespread metabolically active osteolytic metastasis and extensive osseous metastatic throughout thoracic spine respectively. -- Appreciate radiation oncology, pain management input Continue radiation as per radiation oncology Pain control --Continue fentanyl, oxycodone, Dilaudid as needed Bowel regimen to prevent constipation Also started on Cymbalta Pain slowly improving Needs follow-up with oncology upon discharge H/O metastatic breast cancer Continue letrozole. DVT Px: Lovenox SQ Admission and Anticipated Discharge Date Admission Date: February 21, 2022 Subjective Patient is seen and examined at bedside Reports Back pain No new complaints Discussed with patient's family over the phone Denies any chest pain, shortness of breath, dizziness, nausea, abdominal pain Review of Systems Review of Systems: All systems reviewed & are unremarkable except as noted in Subjective Physical Exam Physical Exam: Physical Exam: Vitals signs as noted above General Appearance:Moderately built and nourished, no apparent distress Head: normocephalic, Atraumatic Eyes: normal inspection, EOMI Neck: supple, Trachea midline Respiratory/Chest: Normal breath sounds, CTA, No accessory muscle use Cardiovascular: S1, S2, No murmur Abdomen/GI:Soft, Non tender, Bowel sounds present Extremities/Musculoskeletal:normal inspection, no edema Neurologic/Psych:AAOX3, grossly no focal neurological deficits Skin: normal color, warm Results & Data Results & Data ([facility]) Vital Signs (Past 12 Hours) Vital Signs Temp Pulse Resp BP Pulse Ox 03/01/22 14:07 36.6 C 70 16 128/74 94 03/01/22 08:42 36.5 C 66 16 120/62 94 Laboratory Results Short CBC 03/01/22 Range/Units 07:28 WBC 5.48 (4.8-10.8) K/uL Hgb 12.2 (12.0-16.0) g/dL Hct 37.2 (37-47) % Plt Count 379 (130-400) K/uL BMP 03/01/22 07:28 Sodium 134 L Potassium 4.7 Chloride 100 Carbon Dioxide 29 BUN 14 Creatinine 0.62 Glucose 110 H Calcium 9.4 (1) Pathologic compression fracture of lumbar vertebra Encounter type: initial encounter Qualified Code(s): M48.56XA - Collapsed vertebra, not elsewhere classified, lumbar region, initial encounter for fracture
[2022-03-01] MEDS: ATORVASTATIN 40 MG TAB PO SCH (20:07)
[2022-03-02] MEDS: CHECK fentaNYL PATCH PLACEMENT SCH ×2 (07:03→15:31)
[2022-03-02] MEDS: ASPIRIN 81 MG CHEW PO SCH (07:46)
[2022-03-02] MEDS: LETROZOLE 2.5 MG TAB PO SCH (07:46)
[2022-03-02] MEDS: DOCUSATE SODIUM 100 MG CAP PO SCH ×2 (07:46→20:20)
[2022-03-02] MEDS: POLYETHYLENE (MIRALAX) 17 GM PACK PO SCH (07:46)
[2022-03-02] MEDS: SENNA 8.6 MG TAB PO SCH (07:46)
[2022-03-02] MEDS: DULoxetine HCL 30 MG CAP PO SCH (07:47)
[2022-03-02] MEDS: ENOXAPARIN INJ 40 MG/0.4 ML SYR SQ SCH (07:47)
[2022-03-02] MEDS: LIDOCAINE 5% 1 PATCH TD SCH (07:47)
[2022-03-02] MEDS: oxyCODONE HCL IR 5 MG TAB (IMMEDIATE RELEASE) PO PRN ×3 (07:52→18:41)
[2022-03-02] MEDS ORDERED: Nursing to Pharmacy Communication SCH (13:00)
[2022-03-02] MEDS ORDERED: fentaNYL 50 MCG/HR TDSY TD SCH (13:30)
--- NOTE | 2022-03-02 18:10 | Hospitalist Progress Note ---
Date of Service March 02, 2022 Assessment & Plan (1) Breast cancer: (2) Intractable low back pain: (3) Pathologic compression fracture of lumbar vertebra: Plan: Pathological fracture of lumbar vertebrae Intractable back pain History of breast cancer with metastasis --CT :Redemonstration of extensive mixed lytic and sclerotic lesions and pathologic fractures. --Outpatient PET scan, MRI T-spine that were done outpatient on 02/06/2022 02/16/2022 respectively. These show widespread metabolically active osteolytic metastasis and extensive osseous metastatic throughout thoracic spine respectively. -- Appreciate radiation oncology, pain management input Continue radiation as per radiation oncology Pain control --Continue fentanyl, oxycodone, Dilaudid as needed Bowel regimen to prevent constipation Also started on Cymbalta Pain slowly improving Needs follow-up with oncology upon discharge Continue current management Plan for radiation therapy on Friday H/O metastatic breast cancer Continue letrozole. DVT Px: Lovenox SQ Admission and Anticipated Discharge Date Admission Date: February 21, 2022 Subjective Patient is seen and examined at bedside RN reported that fetanyl patch fell off overnight Patient has Back pain No other complaints Denies any chest pain, shortness of breath, dizziness, nausea, abdominal pain Review of Systems Review of Systems: All systems reviewed & are unremarkable except as noted in Subjective Physical Exam Physical Exam: Physical Exam: Vitals signs as noted above General Appearance:Moderately built and nourished, no apparent distress Head: normocephalic, Atraumatic Eyes: normal inspection, EOMI Neck: supple, Trachea midline Respiratory/Chest: Normal breath sounds, CTA, No accessory muscle use Cardiovascular: S1, S2, No murmur Abdomen/GI:Soft, Non tender, Bowel sounds present Extremities/Musculoskeletal:normal inspection, no edema Neurologic/Psych:AAOX3, grossly no focal neurological deficits Skin: normal color, warm Results & Data Results & Data ([facility]) Vital Signs (Past 12 Hours) Vital Signs Temp Pulse Resp BP Pulse Ox 03/02/22 15:26 36.6 C 71 16 116/68 96 03/02/22 07:31 36.7 C 69 16 124/68 95 (1) Pathologic compression fracture of lumbar vertebra Encounter type: initial encounter Qualified Code(s): M48.56XA - Collapsed vertebra, not elsewhere classified, lumbar region, initial encounter for fracture
[2022-03-02] MEDS: ATORVASTATIN 40 MG TAB PO SCH (20:13)
[2022-03-03] MEDS: CHECK fentaNYL PATCH PLACEMENT SCH ×4 (00:38→22:11)
[2022-03-03] MEDS: SENNA 8.6 MG TAB PO SCH (07:35)
[2022-03-03] MEDS: ASPIRIN 81 MG CHEW PO SCH (07:35)
[2022-03-03] MEDS: DOCUSATE SODIUM 100 MG CAP PO SCH ×2 (07:35→20:13)
[2022-03-03] MEDS: DULoxetine HCL 30 MG CAP PO SCH (07:35)
[2022-03-03] MEDS: LETROZOLE 2.5 MG TAB PO SCH (07:35)
[2022-03-03] MEDS: POLYETHYLENE (MIRALAX) 17 GM PACK PO SCH (07:36)
[2022-03-03] MEDS: ENOXAPARIN INJ 40 MG/0.4 ML SYR SQ SCH (07:36)
[2022-03-03] MEDS: LIDOCAINE 5% 1 PATCH TD SCH (07:36)
[2022-03-03 07:55] LABS: Creatinine Clr Calc Pharmacy 83.7 ml/min; Est GFR (African American) 106.8 ml/min; Est GFR (Non-African American) 92.2 ml/min
[2022-03-03] MEDS: ATORVASTATIN 40 MG TAB PO SCH (20:13)
--- NOTE | 2022-03-03 21:15 | Hospitalist Progress Note ---
Date of Service March 03, 2022 Assessment & Plan (1) Breast cancer: (2) Intractable low back pain: (3) Pathologic compression fracture of lumbar vertebra: Plan: Pathological fracture of lumbar vertebrae Intractable back pain History of breast cancer with metastasis --CT :Redemonstration of extensive mixed lytic and sclerotic lesions and pathologic fractures. --Outpatient PET scan, MRI T-spine that were done outpatient on 02/06/2022 02/16/2022 respectively. These show widespread metabolically active osteolytic metastasis and extensive osseous metastatic throughout thoracic spine respectively. -- Appreciate radiation oncology, pain management input Continue radiation as per radiation oncology Pain control --Continue fentanyl, oxycodone, Dilaudid as needed Bowel regimen to prevent constipation Also started on Cymbalta Pain slowly improving Needs follow-up with oncology upon discharge Plan for radiation therapy tomorrow Likely discharge tomorrow H/O metastatic breast cancer Continue letrozole. DVT Px: Lovenox SQ Admission and Anticipated Discharge Date Admission Date: February 21, 2022 Subjective Patient is seen and examined at bedside States having minimal back stiffness but otherwise back pain is controlled Plan for radiation therapy tomorrow Eager to get discharged tomorrow No other complaints Denies any chest pain, shortness of breath, dizziness, nausea, abdominal pain Review of Systems Review of Systems: All systems reviewed & are unremarkable except as noted in Subjective Physical Exam Physical Exam: Physical Exam: Vitals signs as noted above General Appearance:Moderately built and nourished, no apparent distress Head: normocephalic, Atraumatic Eyes: normal inspection, EOMI Neck: supple, Trachea midline Respiratory/Chest: Normal breath sounds, CTA, No accessory muscle use Cardiovascular: S1, S2, No murmur Abdomen/GI:Soft, Non tender, Bowel sounds present Extremities/Musculoskeletal:normal inspection, no edema Neurologic/Psych:AAOX3, grossly no focal neurological deficits Skin: normal color, warm Results & Data Results & Data ([facility]) Vital Signs (Past 12 Hours) Vital Signs Temp Pulse Resp BP Pulse Ox 03/03/22 15:18 36.5 C 76 18 122/70 98 Laboratory Results BMP 03/03/22 06:46 Creatinine 0.52 L (1) Pathologic compression fracture of lumbar vertebra Encounter type: initial encounter Qualified Code(s): M48.56XA - Collapsed vertebra, not elsewhere classified, lumbar region, initial encounter for fracture
[2022-03-04] MEDS: HYDROmorphone INJ 0.5 MG/0.5 ML SYR IV PRN (07:27)
[2022-03-04] MEDS: CHECK fentaNYL PATCH PLACEMENT SCH (07:28)
[2022-03-04] MEDS: SENNA 8.6 MG TAB PO SCH (09:09)
[2022-03-04] MEDS: DULoxetine HCL 30 MG CAP PO SCH (09:09)
[2022-03-04] MEDS: LETROZOLE 2.5 MG TAB PO SCH (09:09)
[2022-03-04] MEDS: ASPIRIN 81 MG CHEW PO SCH (09:09)
[2022-03-04] MEDS: ENOXAPARIN INJ 40 MG/0.4 ML SYR SQ SCH (09:09)
[2022-03-04] MEDS: DOCUSATE SODIUM 100 MG CAP PO SCH (09:09)
[2022-03-04] MEDS: POLYETHYLENE (MIRALAX) 17 GM PACK PO SCH (09:10)
[2022-03-04] MEDS: LIDOCAINE 5% 1 PATCH TD SCH (09:10)
--- NOTE | 2022-03-04 12:03 | Hospitalist Progress Note ---
Date of Service March 04, 2022 Assessment & Plan (1) Breast cancer: (2) Intractable low back pain: (3) Pathologic compression fracture of lumbar vertebra: Plan: Pathological fracture of lumbar vertebrae Intractable back pain History of breast cancer with metastasis --CT :Redemonstration of extensive mixed lytic and sclerotic lesions and pathologic fractures. --Outpatient PET scan, MRI T-spine that were done outpatient on 02/06/2022 02/16/2022 respectively. These show widespread metabolically active osteolytic metastasis and extensive osseous metastatic throughout thoracic spine respectively. -- Appreciate radiation oncology, pain management input Continue radiation as per radiation oncology Pain control --Continue fentanyl, oxycodone, Dilaudid as needed Bowel regimen to prevent constipation Also started on Cymbalta Pain slowly improving Needs follow-up with oncology upon discharge Had radiation therapy today Plan to discharge home with home health H/O metastatic breast cancer Continue letrozole. DVT Px: Lovenox SQ Admission and Anticipated Discharge Date Admission Date: February 21, 2022 Subjective Patient is seen and examined at bedside States having minimal vomiting with breakfast this morning Had radiation therapy today Back pain is much improved No new complaints Eager to get discharged Denies any chest pain, shortness of breath, dizziness, nausea, abdominal pain Review of Systems Review of Systems: All systems reviewed & are unremarkable except as noted in Subjective Physical Exam Physical Exam: Physical Exam: Vitals signs as noted above General Appearance:Moderately built and nourished, no apparent distress Head: normocephalic, Atraumatic Eyes: normal inspection, EOMI Neck: supple, Trachea midline Respiratory/Chest: Normal breath sounds, CTA, No accessory muscle use Cardiovascular: S1, S2, No murmur Abdomen/GI:Soft, Non tender, Bowel sounds present Extremities/Musculoskeletal:normal inspection, no edema Neurologic/Psych:AAOX3, grossly no focal neurological deficits Skin: normal color, warm Results & Data Results & Data ([facility]) Vital Signs (Past 12 Hours) Vital Signs Temp Pulse Resp BP Pulse Ox 03/04/22 11:11 36.5 C 70 18 112/70 97 (1) Pathologic compression fracture of lumbar vertebra Encounter type: initial encounter Qualified Code(s): M48.56XA - Collapsed vertebra, not elsewhere classified, lumbar region, initial encounter for fracture
--- NOTE | 2022-03-04 13:19 | Discharge Summary ---
Date of Service March 04, 2022 Admission HPI Per Admitting Provider CHIEF COMPLAINT: Severe back pain. HISTORY OF PRESENT ILLNESS: This is a 77-year-old female with past medical history significant for recent diagnosis of metastatic breast cancer, bone metastasis, prediabetes, hypercholesterolemia, non-allergic rhinitis, who presents with severe back pain. The patient seemed to have a small left breast lesion, which was benign, but then she had axillary lymphadenopathy, biopsy show ed metastatic breast cancer, hormonal negative, HER-2 equivocal, significant bone metastatic disease, following with Hem/Onc. As per the patient, she is supposed to get monthly shots starting next Friday. She also had MRI scan done on 02/16/2022 of the thoracic spine, which showed extensive osseous metastatic disease throughout the thoracic spine, multilevel chronic-appearing pathologic compression fractures including a moderate to severe compression fracture of T10, associated with mild retropulsion of bone, also lytic lesion within the T9 vertebral body with suspected internal hemorrhage, no associated vertebral body height loss. There was also block like enhancement extending along the ventral epidural space from T9-T11, suspicious for epidural extension of disease. No significant mass effect on the spinal cord. Thoracic spine spondylosis with superimposed metastases changes, associated with mild spinal canal narrowing at T10-T11 level and foraminal narrowing. As the pain is not getting better, she came to the hospital today. She states she is able to ambulate and she is able to climb stairs, but when trying to get up, she has severe pain in the lower back and she is also constipated for the last 2 weeks. She did not move her bowels for 2 weeks. Normal bladder movements. Appetite is down. No difficulty swallowing. No chest pain, no shortness of breath, no cough, no fevers, some headache, no blurred visions, no earache, no runny nose, no sore throat. Currently, resting comfortably and hemodynamically stable. With ongoing severe back pain, we are called for admission. Admission Exam Per Admitting Provider PHYSICAL EXAMINATION: GENERAL: The patient is of moderate build, not in acute distress. VITAL SIGNS: Temperature 37.4, pulse 77, respiratory rate 20, blood pressure 158/73, oxygen 97% on room air. HEENT: Pupils equal, round and reactive to light. Oral mucosa moist. NECK: No JVD, no neck masses. CARDIOVASCULAR: S1 and S2 heard. Regular rate and rhythm. No murmur, no gallop. RESPIRATORY SYSTEM: Normal AP diameter. No accessory muscle use. No wheezing, no crackles. ABDOMEN: Soft, bowel sounds present, nontender, no distention. CENTRAL NERVOUS SYSTEM: Cranial nerves II through XII grossly intact, nonfocal. EXTREMITIES: No edema, no erythema.Able to raise lower extremities Principal Diagnosis Pathological fracture of lumbar vertebrae Intractable back pain Breast cancer with metastasis Discharge Data Allergies Allergy/AdvReac Type Severity Reaction Status Date / Time bee venom protein (honey bee) Allergy Severe ANAPHYLAXIS Verified 12/24/21 06:29 Consultations 02/21/22 21:46 ED Decision to Admit Stat 02/22/22 08:00 Consult Pain Management Routine 02/22/22 13:59 Consult Radiation Oncology Routine Ordered Studies 02/21/22 19:45 CT abd pelvis wo con Stat 02/25/22 CT guide rad therapy pelvis Routine Hospital Course (1) Breast cancer: (2) Intractable low back pain: (3) Pathologic compression fracture of lumbar vertebra: Pathological fracture of lumbar vertebrae Intractable back pain History of breast cancer with metastasis --CT :Redemonstration of extensive mixed lytic and sclerotic lesions and pathologic fractures. --Outpatient PET scan, MRI T-spine that were done outpatient on 02/06/2022 02/16/2022 respectively. These show widespread metabolically active osteolytic metastasis and extensive osseous metastatic throughout thoracic spine respectively. -- Appreciate radiation oncology, pain management input Continue radiation as per radiation oncology Pain control --Continue fentanyl, oxycodone, Dilaudid as needed Bowel regimen to prevent constipation Also started on Cymbalta Pain slowly improving Needs follow-up with oncology upon discharge Had radiation therapy today Plan to discharge home with home health H/O metastatic breast cancer Continue letrozole. DVT Px: Lovenox SQ Total Time Total Time Spent Total Time Spent (In Minutes): 45 minutes Discharge Plan Discharge Items Patient Disposition: Home - Home Health Services Reason For Visit: BACK PAIN Discharge Diagnosis: Pathological fracture of lumbar vertebrae Intractable back pain Breast cancer with metastasis Activity: Per Instructions section Exercise/Sports: Wait until after follow-up appointment Non-emergency contact: Primary Care Provider and Oncologist Call non-emergency contact if: you have any medication questions, your symptoms worsen, your pain is concerning for you and you have a fever Follow-up/Referrals: Chu Phillips, DO [Primary Care Provider] - Diet: Carb Consistent or DM2 Addtl Attending Provider Instructions: Follow-up with your primary care physician in 1 week. Please call for appointment. Follow-up with your oncologist Dr. Feliciano Ceballos in 1-2 weeks Follow-up with your radiation oncologist as advised Seek immediate medical attention if your symptoms reoccur or worsen Please take all medications as instructed on discharge list below. Please call if you have any questions or problems. You can reach a [facility] hospitalist on duty at [facility] 24 hours a day by calling [phone] Pending Studies at Discharge: No Stand-Alone Forms: My [facility] Information, Smoking Cessation Medications and DC Order Prescriptions: New fentanyl 50 mcg/hr Patch 72 Hour 50 mcg transdermal Q3D@1330 Qty: 5 RF: 0 polyethylene glycol 3350 [Miralax] 17 gram Powder In Packet 17 g PO DAILY PRN (Reason: Constipation) Qty: 30 RF: 0 docusate sodium 100 mg Capsule 100 mg PO BID PRN (Reason: Constipation) Qty: 60 RF: 0 duloxetine 30 mg Capsule,Delayed Release(Dr/Ec) 30 mg PO QAM Qty: 30 RF: 1 ondansetron HCl 4 mg tablet 4 mg PO DAILY PRN (Reason: nausea and vomiting) Qty: 10 RF: 0 oxycodone 5 mg Tablet 10 mg PO Q4 PRNQty: 0 RF: 0 Continued multivitamin Tablet 1 tab PO DAILY RF: 0 atorvastatin 40 mg Tablet 40 mg PO HS RF: 0 vitamin A 2,400 mcg Capsule 2,400 mcg PO DAILY RF: 0 cyanocobalamin (vitamin B-12) [Vitamin B-12] 1,000 mcg Tablet 1,000 mcg PO DAILY RF: 0 aspirin 81 mg Tablet,Chewable 81 mg PO DAILY RF: 0 pyridoxine (vitamin B6) [Vitamin B-6] 100 mg Tablet 100 mg PO DAILY RF: 0 vitamin B complex Capsule 1 cap PO DAILY RF: 0 vitamin A-vitamin C-vit E-min Tablet 1 tab PO DAILY RF: 0 coenzyme Q10 [CoQ-10] 100 mg Capsule 100 mg PO DAILY RF: 0 omega-3 fatty acids Capsule 2,000 mg PO DAILY RF: 0 vitamin E (dl, acetate) 180 mg (400 unit) Capsule 180 mg PO DAILY RF: 0 calcium carb-mag ox-zinc sulf 333-133-5 mg Tablet 1 tab PO DAILY RF: 0 Vitamin D3 Complete 50 mg PO DAILY RF: 0 letrozole 2.5 mg tablet 2.5 mg PO DAILY RF: 0 Discharge Orders: Discharge Order (Routine); Ordered 03/04/22 Ordered By: Skyler Malik/Other Patient Handouts: Prediabetes Admission Data Admit Date/Time: 02/21/22 23:12 Attending Provider: Skyler Ferraro Admit Provider: John Abdi Primary Care Provider: Chu Phillips Other Providers: John Abdi ; Jr Wade Jerome D
== END 2022-03-04 13:55 | disposition home or self-care (01) | DRG 543 ==
LOC: ED 19:18 → 3W 23:12 → SUATTDRO 23:12 → 3W 02-22 00:30
DX: Z17.1 Estrogen receptor negative status [ER-]; Z92.3 Personal history of irradiation; C79.51 Secondary malignant neoplasm of bone; M84.58XA Pathological fracture in neoplastic disease, other specified site, initial encounter for fracture; K59.00 Constipation, unspecified; Z98.1 Arthrodesis status; G89.3 Neoplasm related pain (acute) (chronic); R73.03 Prediabetes; S32.000A Wedge compression fracture of unspecified lumbar vertebra, initial encounter for closed fracture; C77.3 Secondary and unspecified malignant neoplasm of axilla and upper limb lymph nodes; E78.00 Pure hypercholesterolemia, unspecified; C50.919 Malignant neoplasm of unspecified site of unspecified female breast; Z79.82 Long term (current) use of aspirin